=== PATIENT | female | born 1995 | race Caucasian/White ===

== ENCOUNTER 2017-11-11 21:53 | Emergency (ER) | payer BC ==
[2017-11-11] MEDS ORDERED: NS 0.9% 1000 ML* 1,000 ML IV ONE (22:52)
[2017-11-11] MEDS ORDERED: Ketorolac INJ* 30 MG/ML 1 ML VIAL IV PUSH ONE (22:52)
[2017-11-11] MEDS ORDERED: Metoclopramide IV* 5 MG/ML 2 ML VIAL IV ONE (22:52)
[2017-11-11] MEDS ORDERED: methylPREDNISolone 125 MG* 2 ML VIAL IV ONE (22:52)
[2017-11-12 00:32] VITALS: BP 119/75
--- NOTE | 2017-11-28 11:22 | ED ---
Duane Blancas Gabriel, scribed for Ketan Spencer MD on 11/11/17 at 2251 . Headache - HPI Summary HPI Summary: This patient is a 22 year old F presenting to [facility] accompanied by her mother with a chief complaint of migraine that began at 2100 tonight while sitting in her chair. The patient rates the pain 8/10 in severity. Symptoms aggravated by light. Patient reports nausea. She states it is located in the occipital area and radiates down into her neck which is typical for her usual migraines. She has been having bad cyclic migraines for the past few weeks. She has Tylenol w/ codeine that she takes PRN at home but has hit her maximum dose for the week and would like different medication. - History Of Current Complaint Chief Complaint: EDHeadache Stated Complaint: HEADACHE Time Seen by Provider: 11/11/17 22:46 Hx Obtained From: Patient Hx Last Menstrual Period: 1 WEEK AGO Onset/Duration: Started hours ago, Still Present Initially Headache Was: Initial Pain Scale(0-10)= - 6 Currently Pain Is: Current Pain Scale(0-10)= - 6 Timing: Constant Location of Headache: Occipital Aggravating Factor: Bright Lights Associated Signs And Symptoms: Nausea - Allergies/Home Medications Allergies/Adverse Reactions: Allergies Allergy/AdvReac Type Severity Reaction Status Date / Time amoxicillin Allergy Rash Verified 11/11/17 22:16 Home Medications: Home Medications Cholecalciferol (Vitamin D3) [Vitamin D3] 4,000 unit PO DAILY 11/11/17 [History Confirmed 11/11/17] Desogestrel-Ethinyl Estradiol [Juleber 0.15-30 mg-Mcg] 1 tab PO DAILY 11/11/17 [ History Confirmed 11/11/17] Minocycline HCl [Solodyn] 80 mg PO DAILY 11/11/17 [History Confirmed 11/11/17] Zonisamide [Zonisamide] 25 mg PO BEDTIME 11/11/17 [History Confirmed 11/11/17] raNITIdine HCl [Ranitidine HCl] 150 mg PO BID 11/11/17 [History Confirmed ] PMH/Surg Hx/FS Hx/Imm Hx Cardiovascular History: Denies: Hx Syncope Respiratory History: Reports: Hx Asthma Neurological History: Reports: Hx Headaches, Hx Migraine - Surgical History Surgery Procedure, Year, and Place: ORAL SURGERY Infectious Disease History: No Infectious Disease History: Denies: Traveled Outside the [place] in Last 30 Days - Family History Known Family History: Negative: Diabetes, Blood Disorder - Social History Alcohol Use: None Substance Use Type: Reports: None Smoking Status (MU): Never Smoked Tobacco Review of Systems Positive: Photophobia Positive: Nausea Positive: Headache All Other Systems Reviewed And Are Negative: Yes Physical Exam - Summary Physical Exam Summary: Appearance: Well-appearing, no distress, Well-nourished Skin: Warm, color reflects adequate perfusion Head: Normal Head/Face inspection Eyes: Conjunctiva clear ENT: Normal inspection Neck: Supple, no nodes, no JVD. Respiratory: Lungs clear, Normal breath sounds, no respiratory distress Cardio: RRR, No murmur, pulses normal, brisk capillary refill Abdomen: soft, nontender, no guarding, no rebound Bowel sounds: present Musculoskeletal: Strength Intact/ ROM intact. No calf tenderness. No edema. Neuro: Alert, muscle tone normal, facial symmetry, speech normal, sensory/motor intact Psychological: Normal Triage Information Reviewed: Yes Vital Signs On Initial Exam: Initial Vitals Temp Pulse Resp BP Pulse Ox 97.9 F 100 16 141/104 98 11/11/17 22:09 11/11/17 22:09 11/11/17 22:09 11/11/17 22:09 11/11/17 22:09 Vital Signs Reviewed: Yes Diagnostics - Vital Signs Vital Signs Temp Pulse Resp BP Pulse Ox 11/11/17 22:09 97.9 F 100 16 141/104 98 - Laboratory Lab Statement: Any lab studies that have been ordered have been reviewed, and results considered in the medical decision making process. Re-Evaluation - Re-Evaluation First Eval Re-Evaluation Time: 00:16 Change: Improved Comment: Pt's headache improved with IV analgesia and IVF; pt pain level now 0/ 10; pt repeat CN exam intact II-XII. Headache Course/Dx - Diagnoses Differential Diagnosis/HQI/PQRI: CVA, TIA, Migraine, Sinus Headache, Temporal Arteritis, Tension Headache Provider Diagnoses: Migraine headache Discharge - Sign-Out/Discharge Documenting (check all that apply): Discharge/Admit/Transfer - Discharge Plan Condition: Improved Disposition: HOME Patient Education Materials: Migraine Headache (ED) Referrals: Kathleen Chavez MD [Primary Care Provider] - - Billing Disposition and Condition Condition: IMPROVED Disposition: Home The documentation as recorded by the Duane thomas Gabriel accurately reflects the service I personally performed and the decisions made by me, Ketan Spencer MD.
== END 2017-11-12 00:36 | disposition home or self-care (01) ==
LOC: ED 21:53
DX: G43.909 Migraine, unspecified, not intractable, without status migrainosus (principal); H53.149 Visual discomfort, unspecified; R11.0 Nausea
CPT/HCPCS: 96374; 96375; 99283; J1885; J2765; J2930

== ENCOUNTER 2017-12-22 20:20 | Emergency (ER) | payer BC ==
--- OUTSIDE RECORDS SUMMARY | 2017-12-22 20:25 | XMS REPORT ---
:1995 External Reference #:[id number] Author Organization [employer] Address [address] [place] [address] [place] [address] Phone [phone] Care Team Providers Name Role Phone Kathleen Chavez MD Primary Care Physician Unavailable Payers Type Date Identification Numbers Payment Provider Subscriber Commercial Effective: Policy Number: [employer] Tita Narayanan 2011 [id number] PayID: [id number] [address] [place] [id number] Problems Date Description Provider Status Onset: 12/21/2017 Refractory migraine with aura Gary Feldman M.D. Active Social History Type Date Description Comments Cigarette Use Never Smoked Cigarettes ETOH Use Occasionally consumes alcohol Smoking Patient has never smoked Allergies, Adverse Reactions, Alerts Date Description Reaction Status Severity Comments 12/21/2017 Amoxicillin active Rash 12/21/2017 Vitamin B Complex active Rash Medications Medication Date Status Form Strength Qnty SIG Indications Ordering Provider Topiramate 12/21/ Active Tablets 25mg 60tabs 1 by G43.119 Gary Feldman M.D. twice a day Ranitidine / Active Capsules 150mg take one Unknown HCL 0000 capsule by mouth twice a day Solodyn / Active Tablets ER 80mg 1 tab Unknown 0000 24HR everyday Cetirizine / Active Tablets 10mg 1 by Unknown HCL 0000 mouth every day Juleber / Active Tablets 0.15-30mg- by mouth Unknown 0000 mcg everyday Lexapro / Active Tablets 20mg 1 by Unknown 0000 mouth every day Rizatriptan / Active Tablets 5mg 1 by Unknown Benzoate 0000 mouth at onset of migraine, may repeat after 2 hours max 2/day max 2 days/week Vitamin D-3 00/00/ Active Tablets 2000Unit take 2 Unknown 0000 tab by mouth daily Ambien CR 00/00/ Active Tablets ER 6.25mg one tab Unknown 0000 by mouth every night at bedtime Vital Signs Date Vital Result Comment 12/21/2017 Height 65.5 inches 5'5.50" Weight 210.00 lb Heart Rate 70 /min BP Systolic 130 mmHg BP Diastolic 84 mmHg BMI (Body Mass Index) 34.4 kg/m2 Results Description No Information Procedures Description No Information Encounters Type Date Location Provider CPT E/M Dx Office Visit 12/21/2017 [facility] Gary Feldman, [address] G43.119 8:30a [facility] Office Visit 03/02/2012 [facility] Morena Galvan, [address] 339.20 4:00p [facility] 310.2 Plan of Care Future Appointment(s):02/23/2018 2:45 pm - Gary Feldman M.D. at [facility]12/21/2017 - Gary Feldman M.D.G43.119 Migraine with aura, intractable, without status migrainosusNew Medication:Topiramate 25 mgFollow up:Follow up in 8 weeksRecommendations:1. Keep a headache calendar 2. Will retry Topamax: start 25mg at night for 2 weeks and then add am dose. 3. Call me with any issues. 4. The studies show that low dose low-dose (ie, less than or equal to 30 mcg ethinyl estradiol) with no other stroke risk factors are generally thought to be safe in patients with migraine with aura. I do think it is ok to use low dose OCPs as these help her headaches.
[2017-12-22 20:41] VITALS: BP 122/88
[2017-12-22] MEDS ORDERED: NS 0.9% 500 ML* 500 ML IV ONE (21:46)
[2017-12-22] MEDS ORDERED: Ondansetron INJ* 2 MG/ML VIAL IV ONE (21:48)
[2017-12-22] MEDS ORDERED: Ketorolac INJ* 30 MG/ML 1 ML VIAL IV PUSH ONE (21:48)
--- NOTE | 2017-12-22 22:02 | UC ---
Headache HPI - HPI Summary HPI Summary: 22 yo female c/o migraine h/a since yesterday am. Reports that the migraine started when the she had a neurologic evaluation, and the doctor shined a light in her eye. Migraine is typical migraine, but pain this time lasts longer than usual. Most recent migrain this bad was earlier this week. No fever / chills. Pain is R forehead and R post head. No recent illness. Took migraine medication yesterday, started topamax yesterday. Took ibuprofen and exedrin without relief + nausea no vomit. . No p/d/w. No new visual issues other than usual migraine sx. Reports hyperacoustic, which also is normal for her during migraine. Is being seen by neurologist, Dr. Feldman, they will call her next week. Hx migrain h/a x several years, still in process of w/u. 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 Hx Last Menstrual Period: December 10, 2017 Pain Intensity: 8 - Allergies/Home Medications Allergies/Adverse Reactions: Allergies Allergy/AdvReac Type Severity Reaction Status Date / Time amoxicillin Allergy Rash Verified 12/22/17 20:42 PMH/Surg Hx/FS Hx/Imm Hx Previously Healthy: Yes - see pi re migraine - Surgical History Surgical History: None Surgery Procedure, Year, and Place: ORAL SURGERY - Family History Known Family History: Negative: Diabetes, Blood Disorder - Social History Alcohol Use: None Substance Use Type: Prescribed Smoking Status (MU): Never Smoked Tobacco Review of Systems Constitutional: Negative Skin: Negative Eyes: Photophobia ENT: Negative Respiratory: Negative Cardiovascular: Negative Gastrointestinal: Nausea Genitourinary: Negative Motor: Negative Neurovascular: Negative Musculoskeletal: Negative Neurological: Headache Psychological: Negative Is Patient Immunocompromised?: No All Other Systems Reviewed And Are Negative: Yes Physical Exam Triage Information Reviewed: Yes Appearance: Well-Nourished - sitting up, dark sunglasses on, Other: - uncomfortable with light exam Vital Signs: Initial Vital Signs Temp 97.0 F 12/22/17 20:38 Pulse 84 12/22/17 20:38 Resp 12 12/22/17 20:38 BP 122/88 12/22/17 20:38 Pulse Ox 100 12/22/17 20:38 Eye Exam: Normal - perrla eomi. fundoscopic limited d/t photophobia ENT Exam: Normal Neck exam: Normal Neck: Positive: Supple, Nontender Cardiovascular Exam: Normal Cardiovascular: Positive: RRR, No Murmur, Pulses Normal, Brisk Capillary Refill Abdominal Exam: Normal Abdomen Description: Positive: Nontender Musculoskeletal Exam: Normal Neurological Exam: Normal - cn's 1-12 grossly intact. Moves x 4 ext's H/a describes as R forehead extending to post head Psychological Exam: Normal Skin Exam: Normal Headache Course/Dx - Course Course Of Treatment: Received 500ccNS, IV toradol 30mg IV, Zofran 4mg iv. Pain not completely gone much decreased. Advised not to take nsaid's until tomorrow. Departed with mother. Aware of the need for f/u pcp, and will call neurologist (will call on Monday). - Differential Dx/Diagnosis Provider Diagnoses: Migraine h/a Discharge - Sign-Out/Discharge Documenting (check all that apply): Patient Departure - Discharge Plan Condition: Stable Disposition: HOME Patient Education Materials: Migraine Headache (ED) Referrals: Kathleen Chavez MD [Primary Care Provider] - Additional Instructions: Follow up with your primary care provider, per routine. Follow up with your neurologist, call on Monday to review your condition, and set up a follow up appointment, for next available. Please seek medical attention for worse or new problems in the meantime. - Billing Disposition and Condition Condition: STABLE Disposition: Home
== END 2017-12-22 22:37 | disposition home or self-care (01) ==
LOC: UCEAST 20:20
DX: G43.909 Migraine, unspecified, not intractable, without status migrainosus (principal)
CPT/HCPCS: 96374; 96375; 99211; G0463; J1885; J2405

== ENCOUNTER 2018-04-15 21:55 | Emergency (ER) | payer BC ==
[2018-04-15] MEDS ORDERED: Metoclopramide IV* 5 MG/ML 2 ML VIAL IV SLOW PU ONE (22:43)
[2018-04-15] MEDS ORDERED: Ketorolac INJ* 30 MG/ML 1 ML VIAL IV PUSH ONE (22:43)
[2018-04-15] MEDS ORDERED: NS 0.9% 1000 ML* 1,000 ML IV ONE (22:44)
[2018-04-15] MEDS ORDERED: diPHENhydraMINE PO* 25 MG PO ONE (22:44)
[2018-04-15] MEDS ORDERED: Magnesium Sulfate 2 GM IV* 2 GM/50 ML BAG IVPB ONE (22:44)
--- NOTE | 2018-04-15 23:50 | ED ---
Headache - HPI Summary HPI Summary: Patient is a 22 y/o F w/ c/o headache. She states that DURON onset when she awoke this morning. Patient took excedrin and reglan at 0900 with no relief in Sx. She states she did so again at 1300/1400. At dinner today, mother reports that patient grabbed her head in pain. Mother states that patient was saying "this is a dream" over and over. Patient later elaborated that she said this as the pain was so intense. Vomiting and fever is denied, some nausea reported. Patient notes photophobia. She also claims that present DURON pain is worse than her typical migraine. She states she has tried many migraine medications with no relief in Sx. Patient went to see an customer specialist as mother and patient "did not know what else to do". Hx of endocrine problems is denied. 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 Eaton stated he believes lupus is "attacking her brain". Patient has stopped taking minocycline as a result, is still taking omeprazole and zyrtec. She takes control pills for ovarian cysts. 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 On triage , pain is rated 10/10, light is noted to aggravate Sx, nothing is reported to alleviate Sx. Home medications and allergies are reviewed. - History Of Current Complaint Chief Complaint: EDHeadache Stated Complaint: HEADACHE Time Seen by Provider: 04/15/18 22:26 Hx Obtained From: Patient Hx Last Menstrual Period: December 10, 2017 Onset/Duration: Sudden Onset, Started hours ago - this morning, Still Present, Worse Since - dinnertime Initially Headache Was: Moderate Currently Pain Is: Severe - 10/10 Timing: Constant, Hours - this morning Character: Migraine Aggravating Factor: Bright Lights Allevating Factors: Nothing Associated Signs And Symptoms: Nausea, Other (Noted In Comments) - photophobia endorsed, no vomiting - Allergies/Home Medications Allergies/Adverse Reactions: Allergies Allergy/AdvReac Type Severity Reaction Status Date / Time amoxicillin Allergy Rash Verified 04/15/18 22:11 minocycline Allergy See Comment Verified 04/15/18 22:11 PMH/Surg Hx/FS Hx/Imm Hx Endocrine/Hematology History: 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 Negative: Vomiting Positive: Headache All Other Systems Reviewed And Are Negative: Yes Physical Exam - Summary Physical Exam Summary: VITAL SIGNS: Reviewed. GENERAL: Patient is a well-developed and nourished female who is lying comfortable in the stretcher. Patient is not in any acute respiratory distress. HEAD AND FACE: No signs of trauma. No ecchymosis, hematomas or skull depressions. No sinus tenderness. EYES: PERRLA, EOMI x 2, No injected conjunctiva, no nystagmus. EARS: Hearing grossly intact. Ear canals and tympanic membranes are within normal limits. MOUTH: Oropharynx within normal limits. NECK: Supple, trachea is midline, no adenopathy, no JVD, no carotid bruit, no c- spine tenderness, neck with full ROM. CHEST: Symmetric, no tenderness at palpation LUNGS: Clear to auscultation bilaterally. No wheezing or crackles. CVS: Regular rate and rhythm, S1 and S2 present, no murmurs or gallops appreciated. ABDOMEN: Soft, non-tender. No signs of distention. No rebound no guarding, and no masses palpated. Bowel sounds are normal. EXTREMITIES: FROM in all major joints, no edema, no cyanosis or clubbing. NEURO: Alert and oriented x 3. No acute neurological deficits. Speech is normal and follows commands. SKIN: Dry and warm Triage Information Reviewed: Yes Vital Signs On Initial Exam: Initial Vitals Temp Pulse Resp BP Pulse Ox 100.6 F 92 16 141/88 97 04/15/18 22:04 04/15/18 22:04 04/15/18 22:04 04/15/18 22:04 04/15/18 22:04 Vital Signs Reviewed: Yes Diagnostics - Vital Signs Vital Signs Temp Pulse Resp BP Pulse Ox 04/15/18 22:04 100.6 F 92 16 141/88 97 - Laboratory Lab Statement: Any lab studies that have been ordered have been reviewed, and results considered in the medical decision making process. Re-Evaluation - Re-Evaluation First Eval Re-Evaluation Time: 23:45 Change: Improved Comment: Patient reports relief in Sx, patient will be discharged to home and follow up with PCP. She is agreeable with this plan. Headache Course/Dx - Course Course Of Treatment: Patient is a 22 y/o F w/ c/o headache. She states that DURON onset when she awoke this morning. Patient took excedrin and reglan at 0900 with no relief in Sx. She states she did so again at 1300/1400. At dinner today , mother reports that patient grabbed her head in pain. Mother states that patient was saying "this is a dream" over and over. Patient later elaborated that she said this as the pain was so intense. Vomiting and fever is denied, some nausea reported. Patient notes photophobia. She states she has tried many migraine medications with no relief in Sx. Patient went to see an customer specialist as mother and patient "did not know what else to do". Hx of endocrine problems is denied. 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 Eaton stated he believes lupus is "attacking her brain ". Patient has stopped taking minocycline as a result, is still taking omeprazole and zyrtec. She takes control pills for ovarian cysts. 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 Physical exam was unremarkable. During ED course, patient was given fluids, Reglan 10 mg IV SLOW PU, magnesium sulfate, toradol 30 mg IV PUSH ED ONCE ONE, and Benadryl 50 mg PO ED ONCE ONE. Afterwards, Patient reports relief in Sx, patient will be discharged to home and follow up with PCP. She is agreeable with this plan. - Diagnoses Provider Diagnoses: Headache Discharge - Sign-Out/Discharge Documenting (check all that apply): Patient Departure - discharge - Discharge Plan Condition: Stable Disposition: HOME Patient Education Materials: Acute Headache (ED) Referrals: Kathleen Chavez MD [Primary Care Provider] - 2 Days Additional Instructions: RETURN TO THE EMERGENCY DEPARTMENT FOR CHANGING OR WORSENING SYMPTOMS. FOLLOW UP WITH PRIMARY CARE PHYSICIAN IN 1-2 DAYS. - Attestation Statements Document Initiated by Scribe: Yes Documenting Scribe: KIA CHOW Provider For Whom Scribe is Documenting (Include Credential): CLAUDY ROACH MD Scribe Attestation: IKIA, scribed for CLAUDY ROACH MD on 04/16/18 at 0009.
[2018-04-16 00:54] VITALS: BP 144/96
== END 2018-04-16 00:55 | disposition home or self-care (01) ==
LOC: ED 21:55
DX: R51 Headache (principal); Z88.0 Allergy status to penicillin
CPT/HCPCS: 96361; 96374; 96375; 99283; A9270-GY; J1885; J2765; J3475

== ENCOUNTER 2018-08-17 16:30 | Emergency (ER) | payer BC ==
--- OUTSIDE RECORDS SUMMARY | 2018-08-17 16:36 | XMS REPORT | Continuity of Care Document ---
:1995 External Reference #:[id number] Author Name Kathlene Chavez M.D. Address [address] [place] [address] Care Team Providers Name Role Phone Kathleen Chavez M.D. 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 Group Name: BC/BS of [place] [address] PayID: [id number] Effective: 2009 Policy Number: [id number] Sara Stack Expires: 2011 Group Name: BC/BS chris MILLER [address] [address] PayID: [id number] P[place] [address] Effective: 2011 Policy Number: [id number] Sara Stack Group Name: [facility] [address] [address] PayID: [id number] P[place]MINI [place] [address] Advance Directives Description No Information Available Problems Date Description Provider Status Onset: 11/16/2010 Refractory migraine Erika Spencer NP Active Onset: 11/16/2010 Asthma without status asthmaticus Kathleen Chavez M.D. Active Family History Date Family Member(s) Observation Comments Mother Cancer, Breast in her 40's Mother Thyroid Disease multinodular goiter, biopsy of dominant nodule benign biopsy Maternal Grandfather Diabetes Social History Type Date Description Comments Sex Unknown Lives With Mother Lives With Father Lives With Sibling - Older Brother Lives With Sibling - Older Sister Smoke-Free Home is smoke-free Pets 1 cat Pets 1 dog Tobacco Use Start: Unknown Never Smoked Cigarettes Tobacco Use Start: Unknown Patient has never smoked Allergies, Adverse Reactions, Alerts Date Description Reaction Status Severity Comments 10/31/2001 Amoxicillin Active Rash AT End Of One Week Rx 06/01/2016 vit Active Moderate rash with vitamin B complex, fine with Vitamin B12 sublingua 03/01/2018 Topamax Active Severe Dissociative symptoms/ mental status changes 05/09/2018 Minocycline Active Severe drug-induced lupus Medications Medication Date Status Form Strength Qnty SIG Indications Ordering Provider Acetaminophen-Co 07/03 Active Tablets 300-30mg 7tabs take one G43.009 Kathleen basilio # tablet by Nilesh Chavez mouth every day as needed for persisten t migraine maximum daily dose=1 Cyanocobalamin 01/03 Active Solution 1000mcg/M 3unit inject Kathleen P. L s 1ml once Nilesh Chavez monthly as directed for vitamin b12 deficienc y Emoquette 01/03 Active Tablets 0.15-3mg- 84tab take 1 Kathleen P. mcg s tablet by Nilesh Chavez mouth once daily as directed Massage Therapy 09/05 Active evaluate Kathleen PNeha and treat Nilesh Chavez for neck pain/ migraines for up to once per week Xopenex HFA 06/02 Active Aerosol 45mcg/Act 15gm 2 puffs Kathleen Ochoa every 4 Nilesh Chavez hours as needed for shortness of breath/ wheezing Fluticasone 05/12 Active Suspension 50mcg/Act 1mont 2 sprays J06.9 Shawnti R. Propionate h each nare Dariel, DISPATCH OFFICER-C daily for rhinitis Vitamin D-3 03/19 Active Tablets 2000Unit 1 po qd Kathleen P. Nilesh Chavez Escitalopram Active Tablets 10mg 1.5 tabs Anitain-Horleopoldo Oxalate /0000 per day- Nadia ghosh-Claudette henley NP Tretinoin Active Cream 0.025% apply to Unknown / face once per day as directed Zolpidem Active Tablets 10mg 7tabs take one Kathleen PNeha Tartrate / tablet by Nilesh Chavez mouth every day at bedtime as needed for sleep Lorazepam Active Tablets 0.5mg Take 1 2 Unknown To 1 Tablet By Mouth Up To Two Times A Day as Needed Maximum Omeprazole Active Capsules 10mg 30cap 1 by Kathleen Ochoa /0000 DR rusty Chavez M.D. every day for heartburn / acid reflux, on empty stomach Zyrtec Allergy Active Tablets 10mg 1 by Unknown mouth every day Metoclopramide Active Tablets 5mg prn Gaston, HCL Migraine Christopher Stacey Allergy 02/20 Hx Tablets 180mg 30tab one by J30.9 Dayna Amezquita s mouth MONTSE Vieira - daily 06/12 Permethrin 02/20 Hx Cream 5% 60gm apply to B86 Dayna Neha body from M[place]SE [place] - the neck 06/12 down leave on for 8 hours then rinse off, may repeat in one week Zonisamide 11/08 Hx Capsules 25mg 30cap 1 po qhs Kathleen Ochoa s for Nilesh Chavez - migraine 01/02 preventio n Norethindrone 07/17 Hx Tablets 0.35mg 28tab Take 1 Kathleen Ochoa s Tablet By Nilesh Chavez - Mouth 01/03 Daily Directed AT The Same Time Every Day For Menses Regulatio n Replace s Radha Tylenol With 06/22 Hx Tablets 300-30mg 7tabs take one G43.Owen Ochoa Codeine #3 tablet by Nilesh Chavez - mouth 07/03 every day as needed for persisten t migraine maximum daily dose=1 Rizatriptan 06/22 Hx Tablets 5mg 14tab Take 1 G43.009 Kathleen Ochoa Benzoate s Tablet By Nilesh Chavez - Mouth AT 02/28 Onset Of Migraine And May Repeat In 2 Hours as Directed Ranitidine HCL 12/06 Hx Tablets 150mg 180ta take one bs tablet by Cade - RYAN broussard III-C 05/09 twice a day for heartburn Wear Sneakers 11/28 Hx must be M72.2 Kjwnti R. able to Storm, DISPATCH OFFICER-C - wear 11/29 sneakers supportiv e shoes at work due to orthopedi c foot problem Omeprazole 10/28 Hx Capsules 40mg 30cap [address] rusty Corbin, - every day [employer]PATCH OFFICER-C 06/22 in the evening Metrogel-Vaginal 04/05 Hx Gel 0.75% 70gm insert N76.0 wnti R. one Dariel, DISPATCH OFFICER-C - applicato 04/15 r full into vagina before bed for one week. Emoquette 03/16 Hx Tablets 0.15-30mg 84tab take 1 Kathleen Ochoa -mcg s tablet by Nilesh Chavez - mouth 07/17 once daily; skip placebo pills Prednisone 03/15 Hx Tablets 20mg 10tab 2 tablets L30.9 Scott s by mouth Cade - daily for III, DISPATCH OFFICER-C 04/18 five days Minocycline HCL 02/12 Hx Capsules 50mg 60cap take one L70.8 s capsule Shaquille, - by mouth [employer]PATCH OFFICER-C 04/18 twice a day for 2 to 3 months Betamethasone 02/12 Hx Lotion 0.05% 60uni apply to L21.8 Suzanne Dipropionate ts scalp Shaquille, - twice [employer]PATCH OFFICER-C 03/03 daily needed Clobetasol 01/26 Hx Foam 0.05% 100gm apply to L30.9 [place] Propionate affected [place], Emulsion - area 03/03 sparingly daily Vitamin B-12 05/19 Hx Tablets 1000mcg 1 Kathleen Ochoa /2014 Sub sublingua Nilesh Chavez - l every Prednisone 11/19 Hx Tablets 20mg 10QS 2 by 708.9 Kathleen Ochoa /2014 mouth Nilesh Chavez - every day 05/19 with food /2014 for 5 days Cetirizine HCL 10/22 Hx Tablets 10mg one by Kathleen Ochoa /2014 mouth Nilesh Chavez - every day 02/28 allergies Gabapentin 07/02 Hx Capsules 100mg 90cap Take 2 To Kathleen P. /2014 s 3 Nilesh Chavez - Capsules 05/19 By Mouth AT Bedtime as Needed For Headaches / Sleep Ambien 06/17 Hx Tablets 5mg 5tabs 1/2-1 po 780.52 Kathleen P. /2014 qhs prn Nilesh Chavez - insomnia 10/22 Bupropion HCL XL 06/21 Hx Tablets ER 150mg 30tab 1 po qam 296.31 Shawnti R. /2013 24HR s for DarielOLIVIAP-C - depressio 06/21 n Citalopram 06/21 Hx Tablets 10mg 30tab 1 po 296.31 Shawnti R. Hydrobromide /2013 s daily for DarielRYAN-C - anxiety 07/20 and depressio n Sertraline HCL 06/11 Hx Tablets 25mg 15tab / po 296.31 Kathleen P. /2013 s qhs as Nilesh Chavez - directed 06/21 x 1 week then can increase to 1 po qd if tolerated Fluoxetine HCL 06/07 Hx Capsules 10mg 30cap 1 po qam 296.31 Shawnti R. /2013 s for DarielRYAN-C - depressio 06/11 Emoquette 05/20 Hx Tablets 0.15-30mg 112ta Take 1 784.0 Kathleen Steel2012 -mcg bs Tablet By Nilesh Chavez - Mouth 03/03 Once Daily; Skip Placebo Pills [place] 3 03/19 Hx Capsules 1000mg Kathleen Ochoa /Aneta Chavez M.D. - 06/12 Lecithin 03/19 Hx Granules Kathleen Ochoa /Aneta Chavez M.D. - 02/05 Vitamin B 03/19 Hx Tablets qd Kathleen Cm Nilesh Chavez - 02/05 Azithromycin 02/19 Hx Tablets 250mg 6tabs take 2 461.9 tablets Shaquille, - today [employer]PATCH OFFICER-C 03/19 then tablet daily for the next 4 days Guaifenesin/Code 02/19 Hx Syrup 100-10mg/ 240ml 1 - 2 461.9 Suzanne 5ML teaspoon Shaquille, - po q 4 DISPATCH OFFICER-C 03/19 hours prn cough, causes drowsines s Azithromycin 08/15 Hx Tablets 250mg 6tabs take 2 382.9 Suzanne tablets Shaquille, - today [employer]PATCH OFFICER-C 03/19 then tablet daily for the next 4 days Clindamycin 03/16 Hx Solution 1% 60ml apply qhs Kathleen Ochoa Phosphate /2011 and up to Nilesh Chavez - bid as 04/16 directed for acne Amitriptyline 03/30 Hx Tablets 10mg 30tab take one Kathleen PNeha HCL /2010 s PO qhs Nilesh Chavez - for 03/13 migraine preventio n/ insomnia Hydrocodone/Acet 08/05 Hx Tablets 2.5-500mg 20tab 05/30-1 po Kathleen Ochoa aminophen /2010 s q 6hours Nilesh Chavez - prn 03/06 migraine Promethazine HCL 08/05 Hx Tablets 12.5mg 10tab one-half Kathleen P. s to one po Nilesh Chavez - q12 hours 03/06 prn migraine/ nausea No School Today 06/02 Hx 346.80 MIKO Spencer - 03/06 Amoxicillin 05/11 Hx Tablets 500mg MIKO Spencer - 05/11 Cefdinir 05/11 Hx Capsules 300mg 14cap 1 tab po s bid x 7 MIKO Spencer - days 03/06 Azithromycin 05/05 Hx Tablets 250mg 6tabs take 2 381.01 Kathleen PNeha tabs day Nilesh Chavez - 1, take 1 03/06 day 2- Azithromycin 04/06 Hx Tablets 250mg 6tabs 2 po 461.9 Shawnti RNeha /2008 today MONTSE Vieira - then 1 po 02/16 daily for 4 days Zyrtec 04/06 Hx Tablets 10mg 30tab one tab 461.9 Erika s by mouth MIKO Spencer - daily for 03/07 seaonal allergies Selenium Sulfide 10/27 Hx Lotion 2.5% 118ml apply to Kathleen P. trunk Nilesh Chavez - once per 02/16 week - leave on x 10 minutes then wash off x 4 weeks Curtis-Tab 09/[address] 333mg 30tab 1 po tid 462 Stacy A. /2008 s for 10 Fazal, - days F.N.P.C. 02/16 Xopenex HFA 12/26 Hx Aerosol 45mcg/Act 1unit 2 puffs q Kathleen P. /2007 s 4 hours Nilesh Chavez - prn 03/03 wheezing can use 2 puffs 30 minutes prior to exercise prn Zithromax 10/19 Hx Suspension 200mg/5cc QS 1 and 1 Shawnti R. /2006 teaspoon Storm, DISPATCH OFFICER-C - po qd 02/06 first day then 07/30 teaspoon qd x 4 days Zithromax 06/09 Hx Suspensi 200mg/TSP QS one and 034.0 Stacy A. /2005 05/ tsp Fazal, - day one, F.N.P.C. 01/16 3/ tsp /2005 days 2-5 Fluoride 04/28 Hx Chewtabs 1mg 30uni one po qd Kathleen P. ts Nilesh Chavez - 02/16 Nhcf-FQ-Flwk 01/19 Hx Chewtabs 1mg 30uni 1 po qd Kathleen P. /2004 benny Chavez M.D. - 04/28 Singulair 09/23 Hx Chewtabs 5mg 7sg 1 po qd 995.3 Nichole Grimes /2003 Yong Haas M.D. 01/13 Stacey 09/23 Hx Tablets 60mg 12sg / po 995.3 Nichole Grimes /2003 bid prn Yong Haas M.D. 01/15 Vermox 09/21 Hx Chewtabs 100mg 2unit one qd x1 Kathleen Ochoa s for Nilesh Chavez - pinworm, 01/15 repeat after 7 days Zithromax 06/02 Hx Suspension 200mg/TSP 15ml one tsp 381.4 Nichole MarinW. /2003 po on day Waldo, - one, then M.D. 09/23 1/ /2003 po qd x4 days Keflex 05/28 Hx Suspension 250mg/TSP 100ml one tsp 381.4 Nichole K.W. /2002 qid or 2 Waldo, - tsp po M.D. 06/02 bid x days Fluoride 01/13 Hx 1mg 30uni one po qd Kathleen P. Chewtabs /2002 ts Nilesh Chavez - 01/19 Ceftin 11/18 Hx Suspensi 250mg/TSP 100ml 1 tsp po Nichole K.W. /2002 bid X10 Waldo, - Days M.D. 01/04 Zithromax 08/12 Hx Suspensi 200mg/TSP QS One TSP Kathleen P. PO qd Nilesh Chavez - First Day 01/04 One-Half TSP PO qd For Four Days Vermox 06/15 Hx Chewtabs 100mg 2unit One qd X1 Adilene s For MIKO Gamez - Pinworm, 08/12 Repeat X1 After 7 Days Amoxil 05/17 Hx Suspensi 400mg/5ML qs 1 tsp bid Adilene X10 Days MIKO Gamez - 08/12 Amoxicillin 10/23 Hx Chewtabs 250mg 30uni Chew And Nichole K.W. /2001 ts Swallow Waldo, - One M.D. 08/12 Tablet Three Times Per Day Until Prescript ion Is Finished Zyrtec Hx Liquid 5mg/TSP Amarilys, /0000 MD Marie - 02/16 Nasonex Nasal Hx 1 spray 381.01 Shawnti R. [place] /0000 each Storm, DISPATCH OFFICER-C - nostril 02/16 daily rhinitis Entex Hx Capsules Amarilys, /0000 MD Marie - 02/16 Advair Diskus Hx Inhaler 100mcg;50 Amarilys, /0000 mcg MD Marie - 02/16 Albuterol Hx Aerosol 90mcg/Dos 1unit 2 Puffs Q Kathleen P. / e s 4 Hours Finn Chavez. - prn 02/16 Wheezing Cough Amoxicillin Hx Tablets 500mg 20tab 1 po bid Unknown /0000 s x 10 days - 08/25 Methylphenidate Hx Tablets ER 36mg One PO Unknown HCL ER /0000 qam prn - Attention 03/19 ( /2012 Member) Zolpidem Hx Tablets 10mg 1/2-1 Unknown Tartrate pill po - qhs prn 03/19 insomnia Zonisamide Hx Capsules 50mg 1 PO qd Stackman, for MD Morena - migraine/ 03/19 headache preventio n - pt not taking regularly Tretinoin Hx Cream 0.025% Unknown - 06/17 Solodyn Hx Tablets ER 65mg 1 PO qd Yadira, 24HR Franny - 03/03 Clindamycin Hx Lotion 1% Unknown Phosphate - 09/27 Modafinil Hx Tablets 100mg Take One Unknown Tablet By - Mouth 09/27 Every Day /2016 Solodyn Hx Tablets ER 55mg One By Unknown 24HR Mouth - Daily 05/09 Aczone Hx Gel 5% Apply To Unknown Face - Daily 06/22 Sumatriptan Hx Tablets 50mg Gaston, Succinate Christopher - 06/12 Medications Administered in Office Medication Date Status Form Strength Qnty SIG Indications Ordering Provider Vitamin B-12 Administered Injection Kathleen P. Injection-To 019 Blegen, 1000mcg M.D. Vitamin B-12 Administered Injection Kathleen P. Injection-To 019 Blegen, 1000mcg M.D. Vitamin B-12 Administered Injection Kathleen P. Injection-To 018 Blegen, 1000mcg M.D. Vitamin B-12 Administered Injection Lab and Injection-To 018 Office 1000mcg Services Vitamin B-12 Administered Injection Kathleen P. Injection-To 018 Blegen, 1000mcg M.D. Vitamin B-12 Administered Injection Kathleen P. Injection-To 018 Blegen, 1000mcg M.D. Vitamin B-12 Administered Injection Lab and Injection-To 015 Office 1000mcg Services Vitamin B-12 Administered Injection Lab and Injection-To 015 Office 1000mcg Services Vitamin B-12 Administered Injection Lab and Injection-To 015 Office 1000mcg Services Immunizations CPT Code Status Date Vaccine Lot # [id number] Given 06/22/2017 Tdap (Adacel) [id number] 63668 Given 09/27/2016 HPV Vaccine 9 (Gardasil 9), 3 Dose [id number] 09169 Given 06/02/2016 Influenza Virus Vaccine, Quadrivalent, 3 Yr > [id number] Quad, Preserv Free 76029 Given 06/02/2016 HPV Vaccine 9 (Gardasil 9), 3 Dose [id number] 21210 Given 03/03/2016 HPV Vaccine, Gardasil [id number] 11172 Given 02/07/2008 Menactra (meningococcal conjugate vaccine) [id number] 24288 Given 12/27/2007 Varicella (Chicken Pox) Vaccine [id number] 32096 Given 12/27/2007 Tdap (Adacel) [id number] 88395 Given 12/25/2001 Inactivated Polio Vaccine, Injectable (Ipol) 14953 Given 12/25/2001 MMR (Measles,Mumps,Rubella) 16154 Given 12/25/2001 DTaP (Daptacel) 21997 Given 10/12/1999 Varicella (Chicken Pox) Vaccine 90228 Given 01/01/1998 Comvax - Hep B Pediatric/Hib 96053 Given 01/01/1998 MMR (Measles,Mumps,Rubella) 44778 Given 01/01/1998 DTaP (Daptacel) 19536 Given 03/20/1997 Opv (Poliovirus,Oral) 07798 Given 03/20/1997 DTaP (Daptacel) 73780 Given 01/16/1997 Comvax - Hep B Pediatric/Hib 19626 Given 01/16/1997 Inactivated Polio Vaccine, Injectable (Ipol) 32666 Given 01/16/1997 DTaP (Daptacel) 07698 Given 1996 Comvax - Hep B Pediatric/Hib 29990 Given 1996 Inactivated Polio Vaccine, Injectable (Ipol) 63383 Given 1996 DTaP (Daptacel) 01861 Refused 01/27/2016 Influenza Virus Vaccine, Quadrivalent, 3 Yr > Quad , Preserv Free Vital Signs Date Vital Result Comment 07/24/2018 1:42pm Weight 215.00 lb Weight 97.524 kg BP Systolic 100 mmHg BP Diastolic 64 mmHg Heart Rate 64 /min Body Temperature 98.5 F Respiratory Rate 16 /min Height 65 inches 5'5" BMI (Body Mass Index) 35.8 kg/m2 Last Menstrual Period [id number] 06/12/2018 4:53pm Weight 212.00 lb Weight 96.163 kg BP Systolic 118 mmHg BP Diastolic 86 mmHg Heart Rate 84 /min Body Temperature 98.5 F O2 % BldC Oximetry 98 % 03/01/2018 12:42pm Weight 213.00 lb Weight 96.617 kg BP Systolic 120 mmHg BP Diastolic 84 mmHg Heart Rate 92 /min Body Temperature 98.8 F Respiratory Rate 16 /min 02/20/2018 4:49pm Weight 215.00 lb Weight 97.524 kg BP Systolic 110 mmHg BP Diastolic 72 mmHg Heart Rate 74 /min Body Temperature 98.6 F Respiratory Rate 16 /min O2 % BldC Oximetry 98 % 01/03/2018 10:46am Weight 213.00 lb Weight 96.617 kg BP Systolic 110 mmHg BP Diastolic 80 mmHg Heart Rate 82 /min Body Temperature 98.5 F Respiratory Rate 16 /min O2 % BldC Oximetry 98 % 06/22/2017 10:32am Weight 210.00 lb Weight 95.256 kg BP Systolic 110 mmHg BP Diastolic 76 mmHg Heart Rate 100 /min Body Temperature 97.4 F Respiratory Rate 18 /min Height 65 inches 5'5" BMI (Body Mass Index) 34.9 kg/m2 O2 % BldC Oximetry 98 % 12/06/2016 1:45pm Weight 200.00 lb Weight 90.720 kg BP Systolic 110 mmHg BP Diastolic 74 mmHg Heart Rate 72 /min Body Temperature 97.6 F Respiratory Rate 14 /min 11/28/2016 3:34pm Weight 202.00 lb Weight 91.627 kg BP Systolic 122 mmHg BP Diastolic 86 mmHg Heart Rate 74 /min Body Temperature 98.5 F Respiratory Rate 18 /min O2 % BldC Oximetry 99 % 10/28/2016 1:49pm Weight 203.00 lb Weight 92.081 kg BP Systolic 120 mmHg BP Diastolic 80 mmHg Heart Rate 84 /min Body Temperature 97.9 F Respiratory Rate 16 /min 09/27/2016 2:45pm Weight 200.00 lb Weight 90.720 kg BP Systolic 128 mmHg (took sudafed last pm) BP Diastolic 98 mmHg (took sudafed last pm) Heart Rate 94 /min Body Temperature 97.8 F Respiratory Rate 16 /min O2 % BldC Oximetry 98 % 06/02/2016 9:45am Weight 197.00 lb Weight 89.359 kg BP Systolic 98 mmHg BP Diastolic 64 mmHg Heart Rate 103 /min Body Temperature 96.4 F Respiratory Rate 16 /min Height 65 inches 5'5" BMI (Body Mass Index) 32.8 kg/m2 Body Mass Index Percentile 3 % Last Menstrual Period 5958632 O2 % BldC Oximetry 98 % 04/18/2016 10:13am Weight 200.00 lb Weight 90.720 kg BP Systolic 116 mmHg BP Diastolic 78 mmHg Heart Rate 82 /min Body Temperature 98.5 F Respiratory Rate 17 /min O2 % BldC Oximetry 99 % 04/05/2016 11:51am BP Systolic 112 mmHg BP Diastolic 70 mmHg Heart Rate 80 /min Body Temperature 99.5 F 03/15/2016 3:07pm Weight 196.00 lb Weight 88.906 kg BP Systolic 120 mmHg BP Diastolic 90 mmHg Heart Rate 88 /min Body Temperature 97.6 F Respiratory Rate 12 /min 03/03/2016 11:30am Weight 194.00 lb Weight 87.998 kg BP Systolic 100 mmHg BP Diastolic 70 mmHg Heart Rate 76 /min Body Temperature 97.9 F Respiratory Rate 16 /min O2 % BldC Oximetry 97 % 01/27/2016 4:50pm Weight 190.00 lb Weight 86.184 kg BP Systolic 100 mmHg BP Diastolic 70 mmHg Heart Rate 72 /min Body Temperature 99.5 F Respiratory Rate 16 /min 05/19/2015 4:36pm Weight 175.00 lb Weight 79.380 kg BP Systolic 100 mmHg BP Diastolic 60 mmHg Heart Rate 72 /min Weight Percentile 94th Right Visual Acuity Distance 20/25 Corrected Left Visual Acuity Distance 20/25 Both Visual Acuity Distance 20/25 11/19/2014 2:30pm Weight 162.00 lb Weight 73.483 kg BP Systolic 120 mmHg BP Diastolic 84 mmHg Heart Rate 84 /min Body Temperature 98.9 F took benadryl Weight Percentile 90th 10/22/2014 2:26pm Weight 158.00 lb Weight 71.669 kg BP Systolic 122 mmHg BP Diastolic 64 mmHg Heart Rate 68 /min Weight Percentile 89th 06/17/2014 4:56pm Weight 156.00 lb Weight 70.762 kg BP Systolic 114 mmHg BP Diastolic 74 mmHg Heart Rate 84 /min Height 65 inches 5'5" Height Percentile 62 % Weight Percentile 88th BMI (Body Mass Index) 26.0 kg/m2 Body Mass Index Percentile 87 % 05/17/2014 9:51am Weight 155.00 lb Weight 70.308 kg Body Temperature 98.6 F Weight Percentile 88th 05/12/2014 4:03pm Weight 154.00 lb Weight 69.854 kg BP Systolic 112 mmHg BP Diastolic 68 mmHg Heart Rate 88 /min Body Temperature 99.2 F Weight Percentile 87th O2 % BldC Oximetry 98 % 02/05/2014 3:18pm Weight 152.00 lb Weight 68.947 kg BP Systolic 105 mmHg BP Diastolic 75 mmHg Heart Rate 89 /min Weight Percentile 87th 07/05/2013 4:25pm Weight 134.00 lb Weight 60.782 kg BP Systolic 100 mmHg BP Diastolic 70 mmHg Heart Rate 72 /min Weight Percentile 7106/21/2013 4:44pm Weight 136.00 lb Weight 61.690 kg BP Systolic 130 mmHg BP Diastolic 68 mmHg Heart Rate 72 /min Weight Percentile 74th 06/07/2013 1:55pm Weight 136.00 lb Weight 61.690 kg BP Systolic 110 mmHg BP Diastolic 74 mmHg Heart Rate 80 /min Body Temperature 98.4 F Weight Percentile 74th 05/20/2013 11:04am Weight 134.00 lb Weight 60.782 kg BP Systolic 100 mmHg BP Diastolic 60 mmHg Heart Rate 76 /min Weight Percentile 7104/16/2013 2:32pm Weight 138.00 lb Weight 62.597 kg BP Systolic 110 mmHg BP Diastolic 58 mmHg Heart Rate 84 /min Body Temperature 96.9 F Height 64.25 inches 5'4.25" Height Percentile 52 % Weight Percentile 76th BMI (Body Mass Index) 23.5 kg/m2 Body Mass Index Percentile 77 % Right Visual Acuity Distance 20/25 with contact lens both eyes Left Visual Acuity Distance 20/25 Both Visual Acuity Distance 20/15 Last Menstrual Period [id number] 03/19/2013 4:41pm Weight 137.00 lb Weight 62.143 kg BP Systolic 102 mmHg BP Diastolic 68 mmHg Heart Rate 72 /min Body Temperature 98.1 F Height 64.5 inches 5'4.50" Height Percentile 56 % Weight Percentile 76th BMI (Body Mass Index) 23.2 kg/m2 Body Mass Index Percentile 75 % 02/19/2013 4:59pm Weight 134.00 lb Weight 60.782 kg BP Systolic 112 mmHg BP Diastolic 70 mmHg Heart Rate 80 /min Body Temperature 98.1 F Weight Percentile 72nd O2 % BldC Oximetry 98 % 12/19/2012 8:56am Weight 132.00 lb Weight 59.875 kg BP Systolic 94 mmHg BP Diastolic 70 mmHg Heart Rate 66 /min Body Temperature 97.4 F Weight Percentile 70th 08/15/2012 4:49pm Weight 138.00 lb Weight 62.597 kg BP Systolic 98 mmHg BP Diastolic 64 mmHg Heart Rate 66 /min Body Temperature 98.0 F Weight Percentile 78th 03/16/2012 3:52pm Weight 144.00 lb Weight 65.318 kg BP Systolic 110 mmHg BP Diastolic 70 mmHg Heart Rate 69 /min Body Temperature 99.4 F Weight Percentile 84th O2 % BldC Oximetry 98 % 03/13/2012 3:26pm Weight 145.00 lb Weight 65.772 kg BP Systolic 100 mmHg BP Diastolic 60 mmHg Heart Rate 76 /min Height 64.50 inches 5'4.50" Height Percentile 59 % Weight Percentile 85th BMI (Body Mass Index) 24.5 kg/m2 Body Mass Index Percentile 85 % Right Visual Acuity Distance 20/25 Left Visual Acuity Distance 20/25 Both Visual Acuity Distance 20/20 Last Menstrual Period 0 03/07/2011 12:16pm Weight 132.00 lb Weight 59.875 kg BP Systolic 110 mmHg BP Diastolic 80 mmHg Heart Rate 84 /min Height 64.5 inches 5'4.50" Height Percentile 65 % Weight Percentile 79th BMI (Body Mass Index) 22.3 kg/m2 Body Mass Index Percentile 77 % Right Visual Acuity Distance 20/20 Left Visual Acuity Distance 20/25 Both Visual Acuity Distance 20/20 Last Menstrual Period 0 03/01/2011 4:35pm Weight 132.00 lb Weight 59.875 kg BP Systolic 104 mmHg BP Diastolic 60 mmHg Heart Rate 88 /min Body Temperature 98.9 F Weight Percentile 79th 08/25/2010 4:06pm Weight 114.00 lb Weight 51.710 kg BP Systolic 100 mmHg BP Diastolic 70 mmHg Heart Rate 84 /min Body Temperature 99.2 F Weight Percentile 60th 08/11/2010 12:29pm Weight 112.00 lb Weight 50.803 kg BP Systolic 100 mmHg BP Diastolic 62 mmHg Heart Rate 77 /min Body Temperature 99.0 F Weight Percentile 57th O2 % BldC Oximetry 99 % 08/05/2010 11:06am Weight 110.00 lb Weight 49.896 kg BP Systolic 90 mmHg BP Diastolic 62 mmHg Heart Rate 72 /min Body Temperature 98.5 F Weight Percentile 54th 06/02/2010 10:50am Weight 110.00 lb Weight 49.896 kg BP Systolic 104 mmHg BP Diastolic 70 mmHg Heart Rate 88 /min Body Temperature 98.5 F Weight Percentile 56th 05/24/2010 1:51pm Weight 109.00 lb Weight 49.442 kg BP Systolic 92 mmHg BP Diastolic 56 mmHg Heart Rate 64 /min Body Temperature 98.9 F Weight Percentile 54th 05/05/2010 4:04pm Weight 111.00 lb Weight 50.350 kg BP Systolic 100 mmHg BP Diastolic 80 mmHg Heart Rate 90 /min Body Temperature 98.9 F Weight Percentile 59th O2 % BldC Oximetry 98 % 02/24/2010 2:52pm Weight 112.00 lb Weight 50.803 kg BP Systolic 102 mmHg BP Diastolic 70 mmHg Heart Rate 88 /min Height 63 inches 5'3" Height Percentile 57 % Weight Percentile 63rd BMI (Body Mass Index) 19.8 kg/m2 Body Mass Index Percentile 61 % Right Visual Acuity Distance 20/20 With Corrections Left Visual Acuity Distance 20/20 With Corrections Both Visual Acuity Distance 20/20 With Corrections Last Menstrual Period 0 04/06/2009 1:40pm Weight 109.00 lb Weight 49.442 kg BP Systolic 110 mmHg BP Diastolic 64 mmHg Heart Rate 88 /min Body Temperature 98.9 F Weight Percentile 72nd 03/24/2009 4:55pm Weight 109.00 lb Weight 49.442 kg BP Systolic 116 mmHg BP Diastolic 76 mmHg Heart Rate 72 /min Height 62 inches 5'2" Height Percentile 65 % Weight Percentile 72nd BMI (Body Mass Index) 19.9 kg/m2 Body Mass Index Percentile 70 % Right Visual Acuity Distance 20/20 Left Visual Acuity Distance 20/20 Both Visual Acuity Distance 20/20 Last Menstrual Period 0 09/03/2008 3:35pm Weight 96.00 lb Weight 43.546 kg Body Temperature 99.3 F Weight Percentile 59th 12/27/2007 12:17pm Weight 88.00 lb Weight 39.917 kg BP Systolic 86 mmHg BP Diastolic 64 mmHg Heart Rate 68 /min Height 58.5 inches 4'10.50" Height Percentile 64 % Weight Percentile 57th BMI (Body Mass Index) 18.1 kg/m2 Body Mass Index Percentile 57 % 05/25/2007 2:24pm Weight 80.00 lb Weight 36.288 kg Body Temperature 97.6 F Weight Percentile 53rd 01/22/2007 12:53pm Weight 75.00 lb Weight 34.020 kg BP Systolic 100 mmHg BP Diastolic 60 mmHg Heart Rate 76 /min Height 56.25 inches 4'8.25" Height Percentile 66 % Weight Percentile 48th BMI (Body Mass Index) 16.7 kg/m2 Body Mass Index Percentile 43 % Right Visual Acuity Distance 20/25 Left Visual Acuity Distance 20/30 10/19/2006 12:01pm Weight 71.50 lb Weight 32.432 kg Body Temperature 97.5 F oral Weight Percentile 45th 01/16/2006 11:36am Weight 67.00 lb Weight 30.391 kg BP Systolic 90 mmHg BP Diastolic 60 mmHg Heart Rate 82 /min Respiratory Rate 18 /min Height 54 inches 4'6" Height Percentile 65 % Weight Percentile 51st BMI (Body Mass Index) 16.2 kg/m2 Body Mass Index Percentile 44 % Right Visual Acuity Distance 20/20 Left Visual Acuity Distance 20/25 09/01/2005 4:31pm Weight 65.00 lb Weight 29.484 kg Body Temperature 98.5 F Weight Percentile 55th 06/09/2005 10:58am Weight 64.00 lb Weight 29.030 kg Body Temperature 100.1 F Weight Percentile 58th 03/21/2005 5:07pm Weight 64.00 lb Weight 29.030 kg Body Temperature 97.4 F Weight Percentile 64th 01/19/2005 12:06pm Weight 62.00 lb Weight 28.123 kg BP Systolic 84 mmHg BP Diastolic 56 mmHg Height 52 inches 4'4" Height Percentile 67 % Weight Percentile 61st BMI (Body Mass Index) 16.1 kg/m2 Body Mass Index Percentile 53 % Both Visual Acuity Distance 20/20 Last Menstrual Period 0 04/28/2004 2:14pm Weight 56.00 lb Weight 25.402 kg Weight Percentile 59th 01/14/2004 11:19am Weight 53.00 lb Weight 24.041 kg BP Systolic 100 mmHg BP Diastolic 60 mmHg Heart Rate 84 /min Height 50.25 inches 4'2.25" Height Percentile 76 % Weight Percentile 54th BMI (Body Mass Index) 14.8 kg/m2 Body Mass Index Percentile 31 % Right Visual Acuity Distance 20/20 Left Visual Acuity Distance 20/20 09/24/2003 4:02pm Weight 44.00 lb Weight 19.958 kg Body Temperature 99.5 F Weight Percentile 20th 06/16/2003 2:22pm Weight 46.00 lb Weight 20.866 kg Body Temperature 99.6 F Weight Percentile 36th 05/28/2003 4:12pm Weight 47.00 lb Weight 21.319 kg Body Temperature 96.9 F Weight Percentile 43rd 01/13/2003 10:58am Weight 45.00 lb Weight 20.412 kg BP Systolic 80 mmHg BP Diastolic 52 mmHg Heart Rate 80 /min Respiratory Rate 20 /min Height 46.50 inches Height Percentile 59 % Weight Percentile 43rd BMI (Body Mass Index) 14.6 kg/m2 01/04/2003 11:13am Weight 46.00 lb Weight 20.866 kg Weight Percentile 49th 11/18/2002 1:31pm Weight 44.00 lb Weight 19.958 kg Body Temperature 99.0 F Weight Percentile 41st 08/12/2002 10:53am Weight 44.00 lb Weight 19.958 kg Body Temperature 98.1 F Weight Percentile 50th 05/17/2002 2:08pm Weight 41.00 lb Weight 18.600 kg Body Temperature 98.8 F Weight Percentile 39th 12/25/2001 10:57am Weight 39.00 lb BP Systolic 90 mmHg BP Diastolic 50 mmHg Heart Rate 88 /min Respiratory Rate 20 /min Height 42.75 inches Height Percentile 59 % Weight Percentile 45th BMI (Body Mass Index) 15.5 kg/m2 Right Visual Acuity Distance 20/20 Left Visual Acuity Distance 20/20 10/23/2001 3:54pm Weight 38.50 lb BP Systolic 80 mmHg BP Diastolic 52 mmHg Body Temperature 99.0 F Weight Percentile 42nd Results Test Date Facility Test Result H/L Range Note Celiac Hla 05/18/2018 [facility] [id number] SEE BELOW 5 [phone] [id number] SEE BELOW 2 Celiac Gene Pairs Present? No Celiac Gene Interpretation See Comment 3 Nuclear AB 05/18/2018 [facility] Nuclear Ab Positive 1:320 Abnormal 4 ([place]) By Ifa [phone] ([place]) by Ifa, Igg IgG Capri Titer: 1:320 [place] Pattern: Homogeneous 5 Hla B27 05/18/2018 [facility] Hla B27 Negative 6 [phone] Hla B27 Interp See Comment 7 Laboratory test 05/18/2018 [facility] Cyclic Citrullinated <15.6 U 8 finding [phone] Pep Igg Celiac Panel 05/18/2018 [facility] Tissue <1.2 U/mL 9 [phone] Transglutaminase IgA Ab Immunoglobulin A 170 mg/dL 61 - 356 Celiac Interpretation See Comment 10 Laboratory test 05/18/2018 [facility] Anti Double < 12.3 IU/mL 11 finding [phone] Stranded Dna AB Cardiolipin 05/18/2018 [facility] Phospholipid Ab < 9.4 MPL 12 Igg/Igm [phone] IgM, S Phospholipid Ab IgG < 9.4 GPL 13 Laboratory test 05/18/2018 [facility] Ribosome P < 0.2 U 14 finding [phone] Antibodies, Igg Abril Igg AB Reflex 05/18/2018 [facility] SS-A/Ro Antibody <0.2 U 15 [phone] SS-B/La Antibody <0.2 U 16 Sm (Palumbo) IgG Antibody <0.2 U 17 SPLICER APPRENTICE Antibody, IgG <0.2 U 18 Scl-70 (Scleroderma) Antibody <0.2 U 19 Shelli-1 Antibody <0.2 U 20 Laboratory test 05/18/2018 [facility] Creatine 58 U/ L N 10-223 finding [phone] Kinase(CK) Rheumatoid Factor < 10 IU/mL N <15 C Reactive Protein 18.88 mg/L High <8.01 Thyroperoxidase AB 0.44 IU/mL N <9 Erythrocyte Sed Rate 21 mm/Hr High 0-14 Aso (Antistreptolysin O) Titer Negative IU/mL <200 Iu/mL 21 Complement C3 192 mg/dL Abnormal 75 - 175 22 Complement C4 41 mg/dL Abnormal 14 - 40 23 Aldolase 6.9 U/L <7.7 24 Laboratory test 03/14/2018 [facility] Vitamin D 49.0 ng/mL N 20-50 finding [phone] Total 25(Oh) Vitamin B12 478 pg/mL N 180-914 25 Prolactin 14.0 ng/mL N 1.0-25.0 Laboratory test 01/04/2018 [facility] Hemoglobin A1c <pending> finding [phone] (Glyco HGB) CBC Auto Diff 01/03/2018 [facility] White Blood 10.0 10^3/uL N 3.5-1 [phone] Count 0.8 Red Blood Count 4.82 10^6/uL N 4.00-5.40 Hemoglobin 13.5 g/dL N 12.0-16.0 Hematocrit 40 % N 35-47 Mean Corpuscular Volume 83 fL N 80-97 Mean Corpuscular Hemoglobin 28 pg N 27-31 Mean Corpuscular HGB Conc 34 g/dL N 31-36 Red Cell Distribution Width 14 % N 10.5-15 Platelet Count 372 10^3/uL N 150-450 Mean Platelet Volume 7.0 um3 Low 7.4-10.4 Abs Neutrophils 4.5 10^3/uL N 1.5-7.7 Abs Lymphocytes 3.2 10^3/uL N 1.0-4.8 Abs Monocytes 0.6 10^3/uL N 0-0.8 Abs Eosinophils 1.7 10^3/uL High 0-0.6 Abs Basophils 0.1 10^3/uL N 0-0.2 Abs Nucleated RBC 0 10^3/uL Granulocyte % 44.6 % N 38-83 Lymphocyte % 32.2 % N 25-47 Monocyte % 5.7 % N 0-7 Eosinophil % 16.9 % High 0-6 Basophil % 0.6 % N 0-2 Nucleated Red Blood Cells % 0.2 Laboratory test 01/03/2018 [facility] Vitamin B12 290 pg/mL N 180-914 26 finding [phone] Comp Metabolic 01/03/2018 [facility] Sodium 139 mmol/ L N 135-145 Panel [phone] Potassium 3.7 mmol/L N 3.5-5.0 Chloride 109 mmol/L N 101-111 Glucose 97 mg/dL N 70-100 Blood Urea Nitrogen 10 mg/dL N 6-24 Calcium 9.4 mg/dL N 8.6-10.3 Total Protein 6.4 g/dL N 6.4-8.9 Albumin 3.8 g/dL N 3.2-5.2 Globulin 2.6 g/dL N 2-4 Albumin/Globulin Ratio 1.5 N 1-3 Total Bilirubin 0.30 mg/dL N 0.2-1.0 Alkaline Phosphatase 91 U/L N 34-104 Alt 12 U/L N 7-52 Ast 12 U/L Low 13-39 Co2 Carbon Dioxide 20 mmol/L Low 22-32 Anion Gap 10 mmol/L N 2-11 Creatinine 0.71 mg/dL N 0.51-0.95 BUN/Creatinine Ratio 14.1 N 8-20 Egfr Non- 103.9 >60 Egfr 125.7 >60 27 Laboratory test 01/03/2018 [facility] TSH (Thyroid 3.86 mcIU/mL N 0.34-5.60 28 finding [phone] Stim Horm) Free T4 (Free Thyroxine) 0.79 ng/dL N 0.61-1.12 29 T3 Free 4.60 pg/mL High 2.5-3.9 30 Hemoglobin A1c 5.3 % N 4.0-5.6 31 Laboratory test 06/22/2017 [facility] TSH (Thyroid 2.44 mcIU/mL N 0.34-5.60 32 finding [phone] Stim Horm) Free T4 (Free Thyroxine) 0.71 ng/dL N 0.61-1.12 33 Comp Metabolic Panel 06/22/2017 [facility] Sodium 136 mmol/L N 133-145 [phone] Potassium 4.2 mmol/L N 3.5-5.0 Chloride 104 mmol/L N 101-111 Co2 Carbon Dioxide 22 mmol/L N 22-32 Anion Gap 10 mmol/L N 2-11 Glucose 107 mg/dL High 70-100 Blood Urea Nitrogen 9 mg/dL N 6-24 Creatinine 0.71 mg/dL N 0.51-0.95 BUN/Creatinine Ratio 12.7 N 8-20 Calcium 9.6 mg/dL N 8.6-10.3 Total Protein 6.7 g/dL N 6.4-8.9 Albumin 3.8 g/dL N 3.2-5.2 Globulin 2.9 g/dL N 2-4 Albumin/Globulin Ratio 1.3 N 1-3 Total Bilirubin 0.20 mg/dL N 0.2-1.0 Alkaline Phosphatase 83 U/L N 34-104 Alt 11 U/L N 7-52 Ast 12 U/L Low 13-39 Egfr Non- 105.0 >60 Egfr 135.0 >60 34 Laboratory test 06/22/2017 [facility] Vitamin D 26.7 ng/mL N 20-50 35 finding [phone] Total 25(Oh) CBC Auto Diff 06/22/2017 [facility] White Blood 8.2 10^3/uL N 3.5-10.8 [phone] Count Red Blood Count 4.96 10^6/uL N 4.0-5.4 Hemoglobin 13.8 g/dL N 12.0-16.0 Hematocrit 41 % N 35-47 Mean Corpuscular Volume 82 fL N 80-97 Mean Corpuscular Hemoglobin 28 pg N 27-31 Mean Corpuscular HGB Conc 34 g/dL N 31-36 Red Cell Distribution Width 13 % N 10.5-15 Platelet Count 381 10^3/uL N 150-450 Mean Platelet Volume 7 um3 Low 7.4-10.4 Abs Neutrophils 4.5 10^3/uL N 1.5-7.7 Abs Lymphocytes 2.3 10^3/uL N 1.0-4.8 Abs Monocytes 0.5 10^3/uL N 0-0.8 Abs Eosinophils 0.8 10^3/uL High 0-0.6 Abs Basophils 0 10^3/uL N 0-0.2 Abs Nucleated RBC 0 10^3/uL Granulocyte % 55.2 % N 38-83 Lymphocyte % 28.2 % N 25-47 Monocyte % 5.8 % N 1-9 Eosinophil % 10.4 % High 0-6 Basophil % 0.4 % N 0-2 Nucleated Red Blood Cells % 0 Laboratory test 06/22/2017 [facility] Vitamin B12 396 pg/mL N 180-914 36 finding [phone] Laboratory test 10/28/2016 [facility] Amylase 67 U/L N 29-103 37 finding [phone] CBC Auto Diff 10/28/2016 [facility] White Blood 10.1 N 3.5-10.8 [phone] Count 10^3/uL Red Blood Count 4.87 10^6/uL N 4.0-5.4 Hemoglobin 13.5 g/dL N 12.0-16.0 Hematocrit 41 % N 35-47 Mean Corpuscular Volume 83 fL N 80-97 Mean Corpuscular Hemoglobin 28 pg N 27-31 Mean Corpuscular HGB Conc 33 g/dL N 31-36 Red Cell Distribution Width 13 % N 10.5-15 Platelet Count 338 10^3/uL N 150-450 Mean Platelet Volume 8 um3 N 7.4-10.4 Abs Neutrophils 5.3 10^3/uL N 1.5-7.7 Abs Lymphocytes 3.0 10^3/uL N 1.0-4.8 Abs Monocytes 0.5 10^3/uL N 0-0.8 Abs Eosinophils 1.3 10^3/uL High 0-0.6 Abs Basophils 0 10^3/uL N 0-0.2 Abs Nucleated RBC 0.01 10^3/uL N Granulocyte % 52.6 % N 38-83 Lymphocyte % 29.5 % N 25-47 Monocyte % 5.1 % N 1-9 Eosinophil % 12.4 % High 0-6 Basophil % 0.4 % N 0-2 Nucleated Red Blood Cells % 0.1 N Comp Metabolic Panel 10/28/2016 [facility] Sodium 136 mmol/L N 133-145 [phone] Potassium 4.1 mmol/L N 3.5-5.0 Chloride 103 mmol/L N 101-111 Co2 Carbon Dioxide 25 mmol/L N 22-32 Anion Gap 8 mmol/L N 2-11 Glucose 93 mg/dL N 70-100 Blood Urea Nitrogen 9 mg/dL N 6-24 Creatinine 0.74 mg/dL N 0.51-0.95 BUN/Creatinine Ratio 12.2 N 8-20 Calcium 9.5 mg/dL N 8.6-10.3 Total Protein 6.7 g/dL N 6.4-8.9 Albumin 3.9 g/dL N 3.2-5.2 Globulin 2.8 g/dL N 2-4 Albumin/Globulin Ratio 1.4 N 1-3 Total Bilirubin 0.30 mg/dL N 0.2-1.0 Alkaline Phosphatase 86 U/L N 34-104 Alt 16 U/L N 7-52 Ast 19 U/L N 13-39 Egfr Non- 100.1 N >60 Egfr 128.7 N >60 38 Laboratory test 10/28/2016 [facility] Lipase 35 U/L N 11.0-82.0 39 finding [phone] Laboratory test 04/18/2016 [facility] Dhea 2.0 ng/mL N <13 40 finding [phone] Androstenedione Level 87 ng/dL N 30-200 41 TSH (Thyroid Stim Horm) 3.28 mcIU/mL N 0.34-5.60 42 Free T4 (Free Thyroxine) 0.77 ng/dL N 0.61-1.12 43 Vitamin B12 400 pg/mL N 180-914 44 Vitamin D Total 25(Oh) 41.4 ng/mL N 30-50 45 Comp Metabolic Panel 04/18/2016 [facility] Sodium 135 mmol/L N 133-145 [phone] Potassium 4.2 mmol/L N 3.5-5.0 Chloride 103 mmol/L N 101-111 Co2 Carbon Dioxide 23 mmol/L N 22-32 Anion Gap 9 mmol/L N 2-11 Glucose 79 mg/dL N 70-100 Blood Urea Nitrogen 9 mg/dL N 6-24 Creatinine 0.68 mg/dL N 0.51-0.95 BUN/Creatinine Ratio 13.2 N 8-20 Calcium 9.4 mg/dL N 8.6-10.3 Total Protein 7.0 g/dL N 6.4-8.9 Albumin 3.9 g/dL N 3.2-5.2 Globulin 3.1 g/dL N 2-4 Albumin/Globulin Ratio 1.3 N 1-3 Total Bilirubin 0.30 mg/dL N 0.2-1.0 Alkaline Phosphatase 73 U/L N 34-104 Alt 15 U/L N 7-52 Ast 14 U/L N 13-39 Egfr Non- 111.5 N >60 Egfr 143.4 N >60 46 Laboratory test 04/18/2016 [facility] Progesterone < 40 ng/dL N 47 finding [phone] 17Hydroxy Testosterone Free 04/18/2016 [facility] Free Testosterone <0.04 N 0.06- 48 & Total [phone] ng/dl ng/dL 1.08 Testosterone 26 ng/dL N 8-60 49 Laboratory test 04/18/2016 [facility] FSH (Follicle 1.1 mIU/mL N 50 finding [phone] Stim Hormone) LH (Lutenizing Hormone) 1.0 ?IU/mL N 51 Insulin Level 37.4 mcIU/mL Abnormal 2.6 - 24.9 52 Laboratory test 04/05/2016 [facility] Culture Genital & SEE RESULT 53 finding [phone] Sensitivity BELOW Laboratory test 04/05/2016 [facility] HCG DIP Test neg Neg finding (607)- - Urine DIP 04/05/2016 [facility] Leukocytes nge Neg (607)- - Urine Nitrites neg Neg Urobilinogen norm Norm Total Protein, Urine neg Neg Urine pH 5 5-6 Urine Blood neg Neg Specific [place] 1.020 1.01-1.02 Urine Ketones neg Neg Urine Bilirubin neg Neg Urine Glucose norm Norm Comp Metabolic Panel 05/19/2015 [facility] Sodium 136 mmol/L N 133-145 [phone] Potassium 4.4 mmol/L N 3.5-5.0 Chloride 104 mmol/L N 101-111 Co2 Carbon Dioxide 24 mmol/L N 22-32 Anion Gap 8 mmol/L N 2-11 Glucose 97 mg/dL N 70-100 Blood Urea Nitrogen 8 mg/dL N 6-24 Creatinine 0.63 mg/dL N 0.51-0.95 BUN/Creatinine Ratio 12.7 N 8-20 Calcium 9.6 mg/dL N 8.6-10.3 Total Protein 7.0 g/dL N 6.4-8.9 Albumin 4.0 g/dL N 3.2-5.2 Globulin 3.0 g/dL N 2-4 Albumin/Globulin Ratio 1.3 N 1-3 Total Bilirubin 0.20 mg/dL N 0.2-1.0 Alkaline Phosphatase 67 U/L N 34-104 Alt 10 U/L N 7-52 Ast 14 U/L N 13-39 Egfr Non- 123.1 N >60 Egfr 158.3 N >60 54 CBC Auto Diff 05/19/2015 [facility] White Blood 9.0 10^3/uL N 3.5-10.8 [phone] Count Red Blood Count 4.77 10^6/uL N 4.0-5.4 Hemoglobin 13.5 g/dL N 12.0-16.0 Hematocrit 41 % N 35-47 Mean Corpuscular Volume 85 fL N 80-97 Mean Corpuscular Hemoglobin 28 pg N 27-31 Mean Corpuscular HGB Conc 33 g/dL N 31-36 Red Cell Distribution Width 13 % N 10.5-15 Platelet Count 350 10^3/uL N 150-450 Mean Platelet Volume 7 um3 Low 7.4-10.4 Abs Neutrophils 5.1 10^3/uL N 1.5-7.7 Abs Lymphocytes 2.4 10^3/uL N 1.0-4.8 Abs Monocytes 0.4 10^3/uL N 0-0.8 Abs Eosinophils 1.1 10^3/uL High 0-0.6 Abs Basophils 0 10^3/uL N 0-0.2 Abs Nucleated RBC 0.01 10^3/uL N Granulocyte % 56.3 % N 38-83 Lymphocyte % 26.6 % N 25-47 Monocyte % 5.0 % N 1-9 Eosinophil % 11.7 % High 0-6 Basophil % 0.4 % N 0-2 Nucleated Red Blood Cells % 0.1 N Laboratory test 05/19/2015 [facility] Vitamin B12 633 pg/mL N 180-914 55 finding [phone] Comp Metabolic 10/22/2014 [facility] Sodium 135 mmol/ L N 133-145 Panel [phone] Potassium 3.8 mmol/L N 3.5-5.0 Chloride 104 mmol/L N 101-111 Co2 Carbon Dioxide 23 mmol/L N 22-32 Anion Gap 8 mmol/L N 2-11 Glucose 120 mg/dL High 70-100 Blood Urea Nitrogen 10 mg/dL N 6-24 Creatinine 0.69 mg/dL N 0.51-0.95 BUN/Creatinine Ratio 14.5 N 8-20 Calcium 9.6 mg/dL N 8.6-10.3 Total Protein 6.8 g/dL N 6.4-8.9 Albumin 4.0 g/dL N 3.2-5.2 Globulin 2.8 g/dL N 2-4 Albumin/Globulin Ratio 1.4 N 1-3 Total Bilirubin 0.30 mg/dL N 0.2-1.0 Alkaline Phosphatase 62 U/L N 34-104 Alt 9 U/L N 7-52 Ast 13 U/L N 13-39 Egfr Non- 110.8 N >60 Egfr 142.5 N >60 56 CBC Auto Diff 10/22/2014 [facility] White Blood 7.7 10^3/uL N 4.8-10.8 [phone] Count Red Blood Count 4.63 10^6/uL N 4.0-5.4 Hemoglobin 13.5 g/dL N 12.0-16.0 Hematocrit 40 % N 35-47 Mean Corpuscular Volume 86 fL N 80-97 Mean Corpuscular Hemoglobin 29 pg N 27-31 Mean Corpuscular HGB Conc 34 g/dL N 31-36 Red Cell Distribution Width 12 % N 10.5-15 Platelet Count 318 10^3/uL N 150-450 Mean Platelet Volume 8 um3 N 7.4-10.4 Abs Neutrophils 4.0 10^3/uL N 1.5-7.7 Abs Lymphocytes 2.4 10^3/uL N 1.0-4.8 Abs Monocytes 0.4 10^3/uL N 0-0.8 Abs Eosinophils 0.9 10^3/uL High 0-0.6 Abs Basophils 0 10^3/uL N 0-0.2 Abs Nucleated RBC 0 10^3/uL N Granulocyte % 52.4 % N 38-83 Lymphocyte % 31.1 % N 25-47 Monocyte % 4.9 % N 1-9 Eosinophil % 11.2 % High 0-6 Basophil % 0.4 % N 0-2 Nucleated Red Blood Cells % 0 N Iron & Iron Binding 10/22/2014 [facility] Iron 103 g/dL N 50-212 Capacity [phone] Unsaturated Iron Binding 359 g/dL N Total Iron Binding Capacity 462 g/dL High 250-450 % Iron Saturation 22 % N 15-55 Laboratory test 10/22/2014 [facility] TSH (Thyroid 2.44 ?IU/mL N 0.34-5.60 finding [phone] Stim Horm) Free T4 (Free Thyroxine) 0.72 ng/mL N 0.61-1.12 Vitamin B12 265 pg/mL N 180-914 57 Vitamin D Total 25(Oh) 34.1 ng/mL N 30-50 Laboratory test 04/16/2013 [facility] Thyroid 0.4 IU/ mL Less Than finding [phone] Peroxidase 9.0 Antibodies Vitamin D, 25 04/16/2013 [facility] 25-Hydroxy <4.0 ng/mL Hydroxy [phone] Vitamin D2 25-Hydroxy Vitamin D3 29 ng/mL 25-Hydroxy Vitamin D Total 29 ng/mL 58 Laboratory test 04/16/2013 [facility] TSH (Thyroid 1.04 0.34-5.60 finding [phone] Stimulating miu/mL Horm) Free T4 0.90 ng/mL 0.61-1.24 Free T3 3.62 pg/mL 2.39-6.79 Vitamin B12 411 pg/mL 180-914 Comp Metabolic Panel 04/16/2013 [facility] Sodium 138 mmol/L 133-145 [phone] Potassium 3.7 mmol/L 3.5-5.0 Chloride 103 mmol/L 101-111 Co2 Carbon Dioxide 26.0 mmol/L 22-32 Anion Gap 9.0 mmol/L 2-11 Glucose 85 mg/dL 70-100 Blood Urea Nitrogen 11 mg/dL 6-24 Creatinine 0.60 mg/dL 0.50-1.40 BUN/Creatinine Ratio 18.3 8-20 Calcium 9.7 mg/dL 8.1-9.9 Total Protein 7.6 g/dL 6.2-8.1 Albumin 4.5 g/dL 3.6-5.4 Globulin 3.1 g/dL 2-4 Albumin/Globulin Ratio 1.5 1-3 Total Bilirubin 0.6 mg/dL 0.4-1.5 Alkaline Phosphatase 99 U/L 50-176 Alt 17 U/L 14-54 Ast 26 U/L 12-42 [place] 04/16/2013 [facility] Lyme Disease Negative Negative Blot [phone] IgG Ab WB Lyme Disease IgG Bands Present No bands detecte <SEE NOTE> kDa 59 Lyme Disease IgM Ab WB Negative Negative Lyme Disease IgM Bands Present No bands detecte <SEE NOTE> kDa 60 Lyme Disease Interpretation See Comment 61 CBC No Diff 04/16/2013 [facility] White Blood 8.6 10^ 3/uL 4.8-10.8 [phone] Count Red Blood Count 4.71 10^6/uL 4.0-5.4 Hemoglobin 13.9 g/dL 12.0-16.0 Hematocrit 40 % 35-47 Mean Corpuscular Volume 85 fL 80-97 Mean Corpuscular Hemoglobin 30 pg 27-31 Mean Corpuscular HGB Conc 35 g/dL 31-36 Red Cell Distribution Width 13 % 10.5-15 Platelet Count 315 10^3/uL 150-450 Mean Platelet Volume 8 um3 7.4-10.4 Laboratory test 03/16/2012 [facility] [place] Test NEGATIVE Negative finding [phone] CBC 03/16/2012 [facility] WBC 6.1 x10E3/uL 4.3-10.9 [phone] RBC 4.67 x10E6/uL 4.30-5.20 Hemoglobin 13.2 g/dL 12.0-16.0 Hematocrit 40.1 % 37.0-47.0 MCV 85.9 fl 82.0-98.0 MCH 28.3 pg 28.0-33.0 MCHC 32.9 g/dL 32.0-36.0 RDW 12.4 % 11.5-14.5 Platelet Count 268 x10E3/uL 130-400 MPV 9.9 fl 6.5-10.5 Segmented Neutrophils 47.7 % 44.0-74.0 Lymphocytes 26.4 % 15.0-45.0 Monocytes 13.4 % High 2.0-13.0 Eosinophils 12.2 % High 0.0-6.0 Basophils 0.3 % 0.0-2.0 Neutrophil Absolute 2.9 x10E3/uL 1.4-7.0 Lymphocytes Absolute 1.6 x10E3/uL 1.0-3.4 Monocyte Absolute 0.8 x10E3/uL 0.2-1.0 Eosinophil Absolute 0.7 x10E3/uL High 0.0-0.5 Basophil Absolute 0.0 x10E3/uL 0.0-0.2 Laboratory test finding 03/16/2012 [facility] Strep Screen neg Neg (607)- - Urine DIP 03/07/2011 [facility] Leukocytes NEG Neg (607)- - Urine Nitrites NEG Neg Urine pH 5 5-6 Total Protein, Urine NEG Neg Urine Glucose NORM Norm Urine Ketones NEG Neg Urobilinogen NORM Norm Urine Bilirubin NEG Neg Urine Blood NEG Neg Specific [place] NA Low 1.01-1.02 Manual Differential 03/07/2011 [facility] Polysegmented 69 % 38-83 62 [phone] Neutrophil Lymphocyte 20 % Low 25-47 Monocyte 7 % 0-13 Eosinophil 4 % 0-6 Absolute Neutrophil Count 6.4 RBC Morphology NORMAL Laboratory test 03/07/2011 [facility] Ferritin 41 NG/ ML 11.0-307 finding [phone] Vitamin D, 25 03/07/2011 [facility] 25-Hydroxy <4.0 ng/mL () Hydroxy [phone] Vitamin D2 25-Hydroxy Vitamin D3 23 ng/mL () 25-Hydroxy Vitamin D Total 23 ng/mL Abnormal () 63 Laboratory test 03/07/2011 [facility] TSH 1.35 MIU/ ML 0.34-5.60 finding [phone] Thyroxine Free 0.75 ng/dL 0.61-1.24 Vitamin B12 473 pg/mL 180-914 Comp Metabolic Panel 03/07/2011 [facility] Sodium 140 mmol/L 135-145 [phone] Potassium 4.1 mmol/L 3.6-5.2 Chloride 108 mmol/L 101-111 Co2 (Carbon Dioxide) 24.0 mmol/L 22-32 Anion Gap 8.0 mmol/L 2-11 64 Glucose 101 mg/dL High 70-100 BUN 8 mg/dL 6-24 Creatinine 0.6 mg/dL 0.50-1.40 One Over Creatinine 1.66 BUN/Creatinine Ratio 13.3 8-20 Calcium 9.8 mg/dL 8.1-9.9 Total Protein 7.0 GM/DL 6.2-8.1 Albumin 4.3 GM/DL 3.6-5.4 Globulin 2.7 GM/DL 2-4 Albumin/Globulin Ratio 1.6 1-3 Bilirubin Total 0.5 mg/dL 0.4-1.5 65 Alkaline Phosphatase 120 U/L Low 130-390 Alt (SGPT) 11 U/L Low 14-54 Ast (Sgot) 21 U/L 12-42 CBC Auto Diff 03/07/2011 [facility] White Blood 9.3 CUMM 4.8-10.8 [phone] Count Red Cell Count 4.64 CUMM 4.2-5.4 Hemoglobin 13.7 g/dL 12.0-16.0 Hematocrit 40 % 35-47 Mean Corpuscular Volume 86 um3 79-97 Mean Corpuscular Hemoglob 30 pg 27-31 Mean Corpuscular HGB Cone 34 g/dL 32-36 Redcell Distribution WDTH 13 % 10.5-15 Platelet Count 344 CUMM 150-450 Mean Platelet Volume 7.8 um3 7.4-10.4 66 Laboratory test finding 03/01/2011 [facility] Strep Screen NEG Neg (607)- - Flu Test A, B, Or A & 08/11/2010 [facility] Influenza A Antigen NEG B,Binaxn (607)- - Influenza B Antigen NEG Laboratory test finding 09/03/2008 [facility] Strep Screen NEG Neg (607)- - Urine DIP 12/27/2007 In [facility] Leukocytes NEG Neg (607)- - Urine Nitrites NEG Neg Urine pH 5 5-6 Total Protein, Urine NEG Neg Urine Glucose NORM Norm Urine Ketones NEG Neg Urobilinogen NORM Norm Urine Bilirubin NEG Neg Urine Blood NEG Neg Specific [place] NORM Low 1.01-1.02 Laboratory test finding 09/01/2005 In [facility] Strep Screen neg Neg (607)- - Laboratory test finding 06/09/2005 In [facility] Strep Screen pos Neg (607)- - Laboratory test finding 05/21/2005 [facility] Rapid Strep A FINAL [phone] Laboratory test finding 03/21/2005 In [facility] Strep Screen NEG Neg (607)- - Urine DIP 12/25/2001 In [facility] Leukocytes N Neg (607)- - Urine Nitrites N Neg Urine pH 6 5-6 Total Protein, Urine N Neg Urine Glucose N Norm Urine Ketones N Neg Urobolinogen N Norm Urine Bilirubin N Neg Urine Blood N Neg 1 RESULT: 01,04:01 REFERENCE VALUE Not Applicable 2 RESULT: 04:02,05:03 DQ Serologic Equivalent: 4,5 REFERENCE VALUE Not Applicable 3 The absence of HLA celiac permissive genes would make the presence of celiac disease unlikely. ADDITIONAL INFORMATION Method: Molecular typing of HLA antigens performed using reverse SSOP and/or SSP methods, reported as serological equivalents and low to medium resolution molecular values. Performing Laboratory CLIA# [id number] Test Performed by: [address] [address] 4 REFERENCE VALUE <1:80 (Negative) 5 Test Performed by: [address] [address] 6 REFERENCE VALUE Not Applicable 7 RESULT: HLA-B27 antigen was not detected. ADDITIONAL INFORMATION Method: Flow Cytometry Performing Laboratory CLIA# [id number] Test Performed by: [address] [address] 8 REFERENCE VALUE <20.0 (Negative) Test Performed by: [facility] - [address] [address] 9 REFERENCE VALUE <4.0 (Negative) Test Performed by: [address] [address] 10 Negative serology. Celiac disease unlikely. However, approximately 10% of patients with celiac disease are seronegative. Also, patients who are already adhering to a gluten-free diet may be seronegative. If celiac disease is highly clinically suspected, consider HLA-DQ typing. Test Performed by: [facility] - [address] [address] 11 REFERENCE VALUE <30.0 (Negative) Test Performed by: [facility] - [address] [address] 12 REFERENCE VALUE <15.0 (Negative) 13 REFERENCE VALUE <15.0 (Negative) Test Performed by: [facility] - [address] [address] 14 REFERENCE VALUE <1.0 (Negative) Test Performed by: [facility] - [address] [address] 15 REFERENCE VALUE <1.0 (Negative) 16 REFERENCE VALUE <1.0 (Negative) 17 REFERENCE VALUE <1.0 (Negative) 18 REFERENCE VALUE <1.0 (Negative) 19 REFERENCE VALUE <1.0 (Negative) 20 REFERENCE VALUE <1.0 (Negative) Test Performed by: [facility] - [address] [place] [id number] 21 Normal values may vary with age, season and geographic area. Titers above upper limits may be indicative of infection, however only a two dilution rise in titer is required to be considered significant. ASO titer will usually rise above upper limits within one week of exposure, increase to peak levels at 3-5 weeks and return to baseline level at 6-12 twelve months. 22 Test Performed by: [place] [id number] Test Performed by: [facility] - [place] [id number] 24 Test Performed by: [facility] [place] [address] 25 Normal Range 180 to 914 Indeterminate Range 145 to 180 Deficient Range <145 26 Normal Range 180 to 914 Indeterminate Range 145 to 180 Deficient Range <145 27 Because ethnic data is not always readily available, this report includes an eGFR for both -Americans and non- Americans. The National Kidney Disease Education Program (NKDEP) does not endorse the use of the MDRD equation for patients that are not between the ages of 18 and 70, are , have extremes of body size, muscle mass, or nutritional status, or are non- or non-. According to the National Kidney Foundation, irrespective of diagnosis, the stage of the disease is based on the level of kidney function: Stage Description GFR(mL/min/1.73 m(2)) 1 Kidney damage with normal or decreased GFR 90 2 Kidney damage with mild decrease in GFR 60-89 3 Moderate decrease in GFR 30-59 4 Severe decrease in GFR 15-29 5 Kidney failure <15 (or dialysis) 28 [id number] 31 Therapeutic target for the treatment of diabetes mellitus patients is <7% HBA1C, and in selective patients <6.0%. Please refer to [place] [employer] diabetic care guidelines for further information. 32 [id number] 34 Because ethnic data is not always readily available, this report includes an eGFR for both -Americans and non- Americans. The National Kidney Disease Education Program (NKDEP) does not endorse the use of the MDRD equation for patients that are not between the ages of 18 and 70, are , have extremes of body size, muscle mass, or nutritional status, or are non- or non-. According to the National Kidney Foundation, irrespective of diagnosis, the stage of the disease is based on the level of kidney function: Stage Description GFR(mL/min/1.73 m(2)) 1 Kidney damage with normal or decreased GFR 90 2 Kidney damage with mild decrease in GFR 60-89 3 Moderate decrease in GFR 30-59 4 Severe decrease in GFR 15-29 5 Kidney failure <15 (or dialysis) 35 [id number] Normal Range 180 to 914 Indeterminate Range 145 to 180 Deficient Range <145 37 [id number] 38 Because ethnic data is not always readily available, this report includes an eGFR for both -Americans and non- Americans. The National Kidney Disease Education Program (NKDEP) does not endorse the use of the MDRD equation for patients that are not between the ages of 18 and 70, are , have extremes of body size, muscle mass, or nutritional status, or are non- or non-. According to the National Kidney Foundation, irrespective of diagnosis, the stage of the disease is based on the level of kidney function: Stage Description GFR(mL/min/1.73 m(2)) 1 Kidney damage with normal or decreased GFR 90 2 Kidney damage with mild decrease in GFR 60-89 3 Moderate decrease in GFR 30-59 4 Severe decrease in GFR 15-29 5 Kidney failure <15 (or dialysis) 39 [id number] 40 ADDITIONAL INFORMATION This test was developed and its performance characteristics determined by [facility] in a manner consistent with CLIA requirements. This test has not been cleared or approved by the U.S. Food and Drug Administration. Test Performed by: [facility] [place] [address] It Support Analyst: Wiliam Ruano II, M.D., Ph.D. 41 ADDITIONAL INFORMATION This test was developed and its performance characteristics determined by [facility] in a manner consistent with CLIA requirements. This test has not been cleared or approved by the U.S. Food and Drug Administration. Test Performed by: [facility] [place] [address] It Support Analyst: Wiliam Ruano II, M.D., Ph.D. 42 [id number] Normal Range 180 to 914 Indeterminate Range 145 to 180 Deficient Range <145 45 [id number] 46 Because ethnic data is not always readily available, this report includes an eGFR for both -Americans and non- Americans. The National Kidney Disease Education Program (NKDEP) does not endorse the use of the MDRD equation for patients that are not between the ages of 18 and 70, are , have extremes of body size, muscle mass, or nutritional status, or are non- or non-. According to the National Kidney Foundation, irrespective of diagnosis, the stage of the disease is based on the level of kidney function: Stage Description GFR(mL/min/1.73 m(2)) 1 Kidney damage with normal or decreased GFR 90 2 Kidney damage with mild decrease in GFR 60-89 3 Moderate decrease in GFR 30-59 4 Severe decrease in GFR 15-29 5 Kidney failure <15 (or dialysis) 47 REFERENCE VALUE < 80 (Follicular) <285 (Luteal) ADDITIONAL INFORMATION This test was developed and its performance characteristics determined by [facility] in a manner consistent with CLIA requirements. This test has not been cleared or approved by the U.S. Food and Drug Administration. Test Performed by: [facility] [place] [address] It Support Analyst: Wiliam Ruano II, M.D., Ph.D. 48 Free testosterone concentrations are calculated from total testosterone after measuring the percentage of free testosterone. Since the percentage in this patient was below the limit of quantification, the free testosterone concentration could not be calculated more precisely. ADDITIONAL INFORMATION Testing performed by [facility]. This test was developed and its performance characteristics determined by [facility] in a manner consistent with CLIA requirements. This test has not been cleared or approved by the U.S. Food and Drug Administration. 49 ADDITIONAL INFORMATION Testing performed by Liquid Chromatography-Tandem Mass Spectrometry (LC-MS/MS). This test was developed and its performance characteristics determined by [facility] in a manner consistent with CLIA requirements. This test has not been cleared or approved by the U.S. Food and Drug Administration. Test Performed by: [facility] - [place] [address] It Support Analyst: Wiliam Ruano II, M.D., Ph.D. 50 Normally menstruating females - Follicular phase 3 - 9 - Mid-cycle peak 4 - 23 - Luteal phase 1 - 6 Postmenopausal females 16 - 114 51 Normally menstruating females - Follicular Phase 1 - 18 - Mid-Cycle Peak 24 - 105 - Luteal Phase 0.6 - 20 Postmenopausal females 15 - 62 52 Test Performed by: [facility] [place] [address] It Support Analyst: Wiliam Ruano II, M.D., Ph.D. 53 SEE RESULT BELOW Name: TITA STACK : [address]: Dayna Vieira NP Acct: [id number] Unit: [id number] AGE: 20 Location: [facility] Re04/05/16 SEX: F Status: REG REF SPEC: [id number] GUILLAUME: 04/05/[address]: Dayna Vieira NP REQ: [id number] RECD: 04/05/16 STATUS: COMP _ SOURCE: VAGINAL SPDESC: ORDERED: Genital Culture COMMENTS: [id number] Procedure Result Reported Site Genital Culture Final 04/07/16- 840 ML Organism 1 NORMAL ELEANOR Quantity 2+ Routine genital cultures do not include selective agar for Neisseria gonorrhoeae. Molecular testing offers better test sensitivity and therefore is the preferred test methodology for identifying this organism. * ML - [facility] ([facility]) . END OF REPORT * ML=Testing performed at Main Lab DEPARTMENT OF PATHOLOGY, [address] [place] [address] Lyndon Ordaz M.D. Director [facility] # [id number] 54 Because ethnic data is not always readily available, this report includes an eGFR for both -Americans and non- Americans. The National Kidney Disease Education Program (NKDEP) does not endorse the use of the MDRD equation for patients that are not between the ages of 18 and 70, are , have extremes of body size, muscle mass, or nutritional status, or are non- or non-. According to the National Kidney Foundation, irrespective of diagnosis, the stage of the disease is based on the level of kidney function: Stage Description GFR(mL/min/1.73 m(2)) 1 Kidney damage with normal or decreased GFR 90 2 Kidney damage with mild decrease in GFR 60-89 3 Moderate decrease in GFR 30-59 4 Severe decrease in GFR 15-29 5 Kidney failure <15 (or dialysis) 55 Normal Range 180 to 914 Indeterminate Range 145 to 180 Deficient Range <145 56 Because ethnic data is not always readily available, this report includes an eGFR for both -Americans and non- Americans. The National Kidney Disease Education Program (NKDEP) does not endorse the use of the MDRD equation for patients that are not between the ages of 18 and 70, are , have extremes of body size, muscle mass, or nutritional status, or are non- or non-. According to the National Kidney Foundation, irrespective of diagnosis, the stage of the disease is based on the level of kidney function: Stage Description GFR(mL/min/1.73 m(2)) 1 Kidney damage with normal or decreased GFR 90 2 Kidney damage with mild decrease in GFR 60-89 3 Moderate decrease in GFR 30-59 4 Severe decrease in GFR 15-29 5 Kidney failure <15 (or dialysis) 57 Normal Range 180 to 914 Indeterminate Range 145 to 180 Deficient Range <145 58 -- REFERENCE VALUE -- 25-HYDROXY D TOTAL (D2+D3) Optimum levels in the healthy population are 20-50, patients with bone disease may benefit from higher levels within this range. Test Performed by: [address] [address] It Support Analyst: Otto Dexter III, M.D. 59 No bands detected 60 No bands detected 61 Specific serologic response to B. burgdorferi infection is not detected, but cannot rule out early infection during which low or undetectable antibody levels to B. burgdorferi may be present. If clinically indicated, a new serum specimen should be submitted in 7-14 days. CDC criteria require >=5 bands for IgG or >=2 bands for IgM for the Immunoblot to be considered positive. Bands (e.g.,p41) may be detected in patients without Lyme disease, and patterns not meeting the CDC criteria should be interpreted with caution. Immunoblot should be ordered only on specimens that are positive or equivocal by a FDA-licensed Lyme disease antibody screening test (e.g., EIA). Test Performed by: [address] [address] It Support Analyst: Otto Dexter III, M.D. 62 NON FASTING 63 Interpretation: 10-24 (mild to moderate deficiency) -- REFERENCE VALUE -- 25-HYDROXY D TOTAL (D2+D3) Optimum levels in the normal population are 25-80 Test Performed by: [facility] Dpt of Lab Med and Pathology [address] [place] [address] It Support Analyst: Otto Dexter III, M.D. 64 Anion gap measurement may be of limited value in the presence of any alkalosis, especially in a combined acid base disorder. . 65 A metabolite of Naproxen, O-desmethylnaproxen, has been shown to interfere with the [employer] method for measuring total bilirubin. Samples from patients who have taken Naproxen have shown spurious elevation in total bilirubin levels. 66 Lymphopenia % Procedures Date Code Description Status 06/12/2018 23023 Therapeutic,Prophylactic,Or Diagnostic Inj,SC/Im Specify Completed Drug 03/01/2018 03195 Therapeutic,Prophylactic,Or Diagnostic Inj,SC/Im Specify Completed Drug 01/26/2018 18198 Therapeutic,Prophylactic,Or Diagnostic Inj,SC/Im Specify Completed Drug 01/03/2018 80448 Therapeutic,Prophylactic,Or Diagnostic Inj,SC/Im Specify Completed Drug 06/22/2017 27373 Therapeutic,Prophylactic,Or Diagnostic Inj,SC/Im Specify Completed Drug 01/01/2015 86379 Therapeutic,Prophylactic,Or Diagnostic Inj,SC/Im Specify Completed Drug 12/01/2014 46177 Therapeutic,Prophylactic,Or Diagnostic Inj,SC/Im Specify Completed Drug 10/30/2014 33109 Therapeutic,Prophylactic,Or Diagnostic Inj,SC/Im Specify Completed Drug 05/11/2004 40971 Destruction, 2-14 Premalignant Lesions Completed 05/11/2004 07729 Destruction,Premalignant Lesion,1St Lesion Completed 04/28/2004 93301 Destruction, 2-14 Premalignant Lesions Completed 04/28/2004 33139 Destruction,Premalignant Lesion,1St Lesion Completed 04/08/2004 59990 Destruction, 2-14 Premalignant Lesions Completed 04/08/2004 56208 Destruction,Premalignant Lesion,1St Lesion Completed 09/24/2003 34216 Audiometric Screening Test, Pure Tone, Air Only Completed Encounters Type Date Location Provider Dx Diagnosis Office Visit 06/12/2018 Main Office Kathleen Ochoa 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 not intractable, w/o status migrainosus N91.5 Oligomenorrhea, unspecified E53.8 Deficiency of other specified B group vitamins E55.9 Vitamin D deficiency, unspecified Office Visit 02/20/2018 4:45p Main Office Dayna Amezquita J30.9 Allergic rhinitis, Storm, DISPATCH OFFICER-C unspecified B86 Scabies G43.009 Migraine w/o aura, not intractable, w/o status migrainosus Office Visit 01/03/2018 10:45a Main Office Kathleen Ochoa G43.009 Migraine w/ o aura, Blegen M.D. not intractable, w/o status migrainosus E53.8 Deficiency of other specified B group vitamins R53.83 Other fatigue Office Visit 06/22/2017 10:15a Main Office Kathleen Ochoa Z00.00 Encntr for Nilesh Chavez general adult medical exam w/o abnormal findings F41.9 Anxiety disorder, unspecified E53.8 Deficiency of other specified B group vitamins E55.9 Vitamin D deficiency, unspecified G43.009 Migraine w/o aura, not intractable, w/o status migrainosus Z23 Encounter for immunization Office Visit 12/06/2016 1:30p Main Office Kathleen Chavez M.D. R12 Heartburn M72.2 Plantar fascial fibromatosis F41.9 Anxiety disorder, unspecified N91.5 Oligomenorrhea, unspecified Office Visit 11/28/2016 3:30p Main Office Dayna Amezquita M72.2 Plantar fascial Storm, DISPATCH OFFICER-C fibromatosis Office Visit 10/28/2016 1:45p Main Office Suzanne Corbin, R10.9 Unspecified DISPATCH OFFICER-C abdominal pain Office Visit 09/27/2016 2:45p Main Office Kathleen Ochoa N91.5 Oligomenorrhea, Blegen, M.D. 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 syndrome F41.9 Anxiety disorder, unspecified N91.5 Oligomenorrhea, unspecified R10.30 Lower abdominal pain, unspecified E53.8 Deficiency of other specified B group vitamins Office Visit 04/05/2016 11:45a Main Office Dayna Vieira, N76.0 Acute vaginitis DISPATCH OFFICER-C Office Visit 03/15/2016 3:00p Main Office Scott Mohamud L30.9 Dermatitis , III, DISPATCH OFFICER-C unspecified Office Visit 03/03/2016 11:15a Main Office Kathleen Ochoa J06.9 Acute upper Blegen M.D. respiratory infection, unspecified Z23 Encounter for immunization Office Visit 02/13/2016 10:00a Main Office Suzanne Corbin, DISPATCH OFFICER-C L70.8 Other acne L21.8 Other seborrheic dermatitis Office Visit 01/27/2016 4:30p Main Office Bismark Burks L30.9 Dermatitis, MD unspecified Office Visit 05/19/2015 4:15p Main Office Kathleen Ochoa G47.00 Insomnia, Kathy, MNehaD. unspecified S06.0x0S Concussion without loss of consciousness, sequela E53.9 Vitamin B deficiency, unspecified Office Visit 11/19/2014 2:30p Main Office Kathleen Ochoa 708.9 Urticaria Unspec Pierregen MNehaDNeha Office Visit 10/22/2014 2:15p Main Office Kathleen Ochoa 850.9 Concussion Unspec Kathy MVin 780.79 Malaise And Fatigue Other 780.52 Insomnia Unspecified Office Visit 06/17/2014 4:30p Main Office Kathleen Ochoa 780.52 Insomnia Kathy MNehaDNeha Unspecified Office Visit 05/17/2014 9:45a Main Office Nichole Grimes 465.9 URI Upper Nilesh Haas Respiratory Infections Acute Unspec Sites Office Visit 05/12/2014 3:45p Main Office Dayna Amezquita 465.9 URI Upper Storm, DISPATCH OFFICER-C Respiratory Infections Acute Unspec Sites Office Visit 02/05/2014 3:15p Main Office Kathleen Ochoa 850.9 Concussion Unspec Kathy, MVin 296.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 784.0 Headache Office Visit 07/05/2013 4:30p Main Office Dayna Amezquita 296.31 Depressive Disorder Storm, DISPATCH OFFICER-C Major Recurrent Mild 465.9 URI Upper Respiratory Infections Acute Unspec Sites Office Visit 06/21/2013 4:30p Main Office Dayna Amezquita 296.31 Depressive Disorder Storm, DISPATCH OFFICER-C Major Recurrent Mild Office Visit 06/07/2013 2:00p Main Office Dayna Amezquita 296.31 Depressive Disorder Storm, DISPATCH OFFICER-C Major Recurrent Mild Office Visit 05/20/2013 11:00a Main Office Dayna Amezquita 784.0 Headache Storm, DISPATCH OFFICER-C 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 Child Health Check 268.9 Vitamin D Deficiency Unspec 780.79 Malaise And Fatigue Other 784.0 Headache V18.19 Family HX Of Other Endocrine And Metabolic Disease Office Visit 03/19/2013 4:30p Main Office Kathleen Ochoa 310.2 Postconcussion Nilesh Chavez Syndrome 784.0 Headache Office Visit 02/19/2013 4:45p Main Office Suzanne Corbin, 461.9 Sinusitis Acute DISPATCH OFFICER-C Unspec Office Visit 12/19/2012 9:00a Main Office Suzanne Corbin, 465.9 URI Upper DISPATCH OFFICER-C Respiratory Infections Acute Unspec Sites 691.8 Dermatitis Atopic & Related Conditions Other Office Visit 08/15/2012 4:45p Main Office Suzanne Corbin, 382.9 Otitis Media Unspec DISPATCH OFFICER-C Office Visit 03/16/2012 3:30p Main Office Suzanne Corbin, 462 Pharyngitis Acute DISPATCH OFFICER-C Office Visit 03/13/2012 3:15p Main Office Kathleen Ochoa V20.2 Routine Or Blegen, M.D. Child Health Check 310.2 Postconcussion Syndrome 268.9 Vitamin D Deficiency Unspec 706.1 Acne Other Office Visit 03/07/2011 11:45a Main Office Kathleen Chavez, V20.2 Routine Infant Or M.D. Child Health Check 310.2 Postconcussion Syndrome 784.0 Headache 386.10 Vertigo Peripheral Unspec Office Visit 03/01/2011 4:30p Main Office Suzanne Corbin, 310.2 Postconcussion DISPATCH OFFICER-C Syndrome Office Visit 08/25/2010 3:30p Main Office Kathleen Ochoa 784.0 Headache Nilesh Chavez 386.10 Vertigo Peripheral Unspec Office Visit 08/11/2010 12:15p Main Office Kathleen Chavez M.D. 784.0 Headache 465.9 URI Upper Respiratory Infections Acute Unspec Sites 386.10 Vertigo Peripheral Unspec Office Visit 08/05/2010 11:00a Main Office Kathleen Ochoa 784.0 Headache Nilesh Chavez Office Visit 06/02/2010 10:45a Main Office Erika Spencer, 346.80 Migraine Other W/O SCALE INSTALLER Intractable Office Visit 05/24/2010 1:45p Main Office Erika Spencer, 382.9 Otitis Media Unspec SCALE INSTALLER Office Visit 05/05/2010 4:00p Main Office Erika Spencer, 381.01 Otitis Media Serous SCALE INSTALLER Acute Office Visit 02/24/2010 2:45p Main Office Kathleen Ochoa V20.2 Routine Infant Or Blegen, M.D. Child Health Check 477.9 Rhinitis Allergic Cause Unspec 493.90 Asthma Unspec W/O Status Asthmaticus 346.80 Migraine Other W/O Intractable Office Visit 04/06/2009 1:30p Main Office Dayna Vieira, 461.9 Sinusitis Acute DISPATCH OFFICER-C Unspec 477.9 Rhinitis Allergic Cause Unspec Office Visit 03/24/2009 4:00p Main Office Kathleen Chavez, V20.2 Routine Or M.D. Child Health Check 110.5 Dermatophytosis Body 789.07 Pain Abdominal Generalized Office Visit 09/03/2008 3:30p Main Office Stacy Emanuel 46Maye Pharyngitis Acute Fazal, F.N.P.C. Office Visit 12/27/2007 12:15p Main Office Kathleen Ochoa V20.2 Routine Infant Or Blegen, M.D. Child Health Check 493.90 Asthma Unspec W/O Status Asthmaticus 995.3 Allergy Unspec 724.5 Backache Unspec V05.4 Varicella Vaccination & Inoculation V06.8 Combination Diseases Other Vaccination & Inoculation Office Visit 05/25/2007 2:30p Main Office Dayna Vieira, 382.9 Otitis Media DISPATCH OFFICER-C Unspec Office Visit 01/22/2007 1:00p Main Office Kathleen Chavez, V20.2 Routine Or M.D. Child Health Check 995.3 Allergy Unspec 493.90 Asthma Unspec W/O Status Asthmaticus Office Visit 10/19/2006 11:45a Main Office Kathleen Ochoa 461.9 Sinusitis Acute Nilesh Chavez Unspec Office Visit 01/16/2006 11:15a Main Office Kathleen Ochoa V20.2 Routine Or Ble, M.D. Child Health Check Office Visit 09/01/2005 4:15p Main Office Markel Patel M.D. 465.9 URI Upper Respiratory Infections Acute Unspec Sites Office Visit 06/09/2005 10:45a Main Office Stacy Emanuel 034.0 Streptococcal Sore Fazal, Throat F.N.P.C. Office Visit 03/21/2005 5:00p Main Office Stacy Emanuel 46Maye Pharyngitis Acute Fazal, F.N.P.C. Office Visit 01/19/2005 12:00p Main Office Kathleen Ochoa V20.2 Routine Or Blegen, M.D. Child Health Check 995.3 Allergy Unspec 078.10 Viral Warts Unspec 493.90 Asthma Unspec W/O Status Asthmaticus Office Visit 01/14/2004 11:30a Main Office Kathleen Chavez, V20.2 Routine Or M.DNeha Child Health Check 995.3 Allergy Unspec 389.9 Hearing Loss Unspec 078.10 Viral Warts Unspec Office Visit 09/24/2003 4:00p Main Office Nichole Grimes 389.9 Hearing Loss Nilesh Haas Unspec 995.3 Allergy Unspec Office Visit 06/16/2003 2:15p Main Office Stacy Emanuel 381.01 Otitis Media Serous Fazal, Acute F.N.P.C. Office Visit 05/28/2003 4:00p Main Office Nichole Grimes 381.4 Otitis Media Acute Or Nilesh Haas Chronic Nonsuppurative 462 Pharyngitis Acute Office Visit 01/13/2003 10:15a Main Office Kathleen Chavez, V20.2 Routine Infant Or M.DNeha Child Health Check 477.9 Rhinitis Allergic Cause Unspec Office Visit 01/04/2003 11:15a Main Office Nichole Grimes 373.9 Inflammation Eyelid Nilesh Haas Unspec Office Visit 11/18/2002 1:30p Main Office Nichole Grimes 382.9 Otitis Media Unspec Nilesh Haas Office Visit 08/12/2002 11:00a Main Office Kathleen Ochoa 466.0 Bronchitis Acute Nilesh Chavez Office Visit 05/17/2002 2:15p Main Office Adilene Gamez, 382.9 Otitis Media Unspec SCALE INSTALLER Office Visit 12/25/2001 11:00a Main Office Kathleen Ochoa V20.2 Routine Infant Or Nilesh Chavez Child Health Check Office Visit 10/23/2001 3:45p Main Office Nichole Grimes 382.9 Otitis Media Unspec Nilesh Haas Office Visit 08/01/2001 11:15a Main Office Suzanne Helms, 462 Pharyngitis Acute Nilesh 465.9 URI Upper Respiratory Infections Acute Unspec Sites Plan of Treatment Future Appointment(s):08/02/2018 12:15 pm - Kathleen Chavez M.D. at Main [id number]/24/2018 - Kathleen Chavez M.D.Z00.00 Encounter for general adult medical examination without abnoComments:HEALTH MAINTENANCE REMINDERS DISCUSSED. EMPHASIZED HEALTHY EATING, EXERCISE/ PHYSICAL ACTIVITY, CALCIUM INTAKE WITH DIET.Follow up:. -- RETURN FOR PAP SMEAR (30 MIN OR END OF SESSION) Recommendations:-- REMINDER TO SEE DENTIST -- REMINDER TO SEE EYE QRCJHRN57.0 Drug-induced systemic lupus erythematosusComments:SX HAVE IMPROVED AND FEELS RESOLVED, OFF MINOCYCLINE - CAUSATIVE AGENT- SINCE MARCH. HAD EVALUATION WITH DR. MARTINEZ, RHEUMATOLOGY.Recommendations:-- I'M GLAD YOU ARE DOING BETTER AND FEELING MCZGEWP56.009 Migraine without aura, not intractable, without status migraComments:MIGRAINES WERE GETTING BETTER BUT THEN WORSE LAST WEEK MISTAKENLY TOOK HER OLD BCP RX FOR PROGESTERONE-ONLY BCP FOR 5 DAYS, IS BACK ON HER LOW-DOSE COMBINATION BCP NOW AND FEELS IT IS HELPING.Follow up: .Recommendations:-- FOLLOW-UP WITH DR. OBRIEN -- CONTINUE YOUR CURRENT WQCAYGRI47.8 Deficiency of other specified B group vitaminsComments:PT WANTS TO TRY THE SUBLINGUAL VITAMIN B12 AGAIN - DISCUSSED PROPER USE, DAILY, GIVEN HER VITAMIN B12 INJECTION TODAY.Follow up:.Recommendations:-- CONTINUE YOUR VITAMIN B12 INJECTION 1000 MCG ONCE PER MONTH -- OR YOU CAN TAKE THE VITAMIN B12 SUBLINGUAL 1000 MCG ONCE PER DAYN91.5 Oligomenorrhea, unspecifiedFollow up: .Recommendations:-- CONTINUE THE CONTROL PILLE55.9 Vitamin D deficiency, unspecifiedFollow up:.Recommendations:-- CONTINUE THE VITAMIN D3 2000 IU PER DAYR12 HeartburnComments:OMEPRAZOLE WORKS WELL, WANTS TO TRY LOWER DOSE THAN 20 MG BUT CANNOT FIND THAT OTC- RX SENT- LET ME KNOW IF BREAKTHROUGH SX.Follow up: .Recommendations:-- YOU CAN TAKE THE OMEPRAZOLE 10 MG PER DAY ON EMPTY BOWKINHZ27.601 Right temporomandibular joint disorder, unspecifiedRecommendations:-- YOU HAVE SIGNS OF YOUR TMJ AT YOUR RIGHT JAW -- AVOID CHEWING GUM THAT CAUSES REPETITIVE DAMAGE AND STRAIN -- YOU MAY ALSO BE CLENCHING YOUR TEETH AT NIGHT- CHECK WITH THE DENTIST ABOUT THE TMJ WHEN YOU SEE THEM -- YOU CAN USE ICE PACK X 10-15 MINUTES NEEDED TO THE AREA
--- OUTSIDE RECORDS SUMMARY | 2018-08-17 16:36 | XMS REPORT | Continuity of Care Document ---
:1995 External Reference #:[id number] Author Name Yulissa Crocker Care Team Providers Name Role Phone Kathleen Chavez MD Primary Care Physician Unavailable Payers Date Identification Numbers Payment Provider Subscriber Effective: 2016 Policy Number: [id number] [employer] Amena Narayanan PayID: [id number] [address] [address] [place] [address] Advance Directives Description No Information Available Problems Date Description Provider Status Onset: 05/17/2018 Systemic lupus erythematosus Gary Feldman M.D. Active Onset: 12/21/2017 Refractory migraine with aura Gary Feldman M.D. Active Family History Date Family Member(s) Observation Comments General Psoriasis General Crohn's Disease Father Hypertension Father Hypercholesterolemia Mother Diabetes Type II Mother Heart Disease Siblings 2 1 brother and 1 sister , 1 sister, angelman's syndrome. Social History Type Date Description Comments Sex Unknown Marital Status Single Lives With Family Occupation unemployed Hand Dominance Right-handed Tobacco Use Start: Unknown Never Smoked Cigarettes Smoking Status Reviewed: 08/17/18 Never Smoked Cigarettes ETOH Use Rarely consumes alcohol 1 drink every couple of months Tobacco Use Start: Unknown Patient has never smoked Recreational Drug Use Denies Drug Use Exercise Type/Frequency Does not exercise Allergies, Adverse Reactions, Alerts Date Description Reaction Status Severity Comments 12/21/2017 Amoxicillin Active Rash 12/21/2017 Vitamin B Complex Active Rash 03/14/2018 Minocycline drug-induced lupus Active Severe Medications Medication Date Status Form Strength Qnty SIG Indications Ordering Provider Aimovig 08/17 Active Solution 70mg/ml 1ml 1 G43.119 Gerard Auto-Inject injection Espinal, monthly N.P. Rizatriptan Active Tablets 5mg 1 by Unknown Benzoate /0000 mouth at onset of migraine, september repeat after 2 hours max 2/day max 2 days/week Vitamin D-3 Active Tablets 2000Unit take 2 Unknown /0000 tab by mouth daily Ambien CR Active Tablets ER 6.25mg one tab Unknown / by mouth every night at bedtime prn Emoquette Active Tablets 0.15-30mg 1 by Unknown /0000 -mcg mouth every day Cyanocobalamin Active Solution 1000mcg/M 1 Unknown /0000 L millilite rs intramusc ular [id number] Tylenol With Active Tablets 300-30mg 1 tab by Unknown Codeine #3 /0000 mouth every 4-6 hours as needed for persisten t migraine Xopenex HFA Active Aerosol 45mcg/Act 2 puffs inhaled every 4-6h as needed for shortness of breath. Tretinoin Active Cream 0.025% apply to Unknown face once per day Lorazepam Active Tablets 0.5mg 1-2 Unknown /0000 tablets 2 times per day as needed Zyrtec Allergy Active Capsules 10mg take one Unknown 0000 tablet by mouth in the evening Omeprazole Active Capsules DR 20mg 1 by Unknown /0000 mouth every day Metoclopramide Active Tablets 5mg 14tab 1 tablet Gerard HCL / s as needed Teddy for N.P. migraine/ nausea up to three times per day. Lexapro Active Tablets 10mg 1 by Unknown /0000 mouth every day Naratriptan HCL 08/07 Hx Tablets 1mg 9tabs 1 tablet Gerard by mouth Teddy, - prn N.P. 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 Zolmitriptan 07/18 Hx Tablets 2.5mg 9tabs Take 1 at start of Nilesh Feldman - headache, 08/07 repeat X 1 in 2 hours, no more than 2 in 24 hours, 2 times a week Lexapro 03/13 Hx Tablets 10mg 1/2 Coe Jyoti tablets MD - by mouth 08/16 with 1 20 mg tablet for a total of 25 mg daily9(pt . is taking 15 mg/day 07/03/18) Sumatriptan 02/23 Hx Tablets 50mg 9tabs take 1 at G43.119 Christianacareliz onset of Nilesh Feldman - migraine. 05/16 repeat within 2 hours if needed. max 2 pills in a day, no more than 2 times a week Topiramate 12/21 Hx Tablets 25mg 60tab 2 tab po G43.119 s bid Nilesh Feldman - 02/22 Ranitidine HCL Hx Capsules 150mg take one Unknown /0000 capsule - by mouth 05/16 twice a day Solodyn Hx Tablets ER 80mg 1 tab Unknown /0000 24HR everyday - 03/17 Cetirizine HCL Hx Tablets 10mg 1 by Unknown /0000 mouth - every day 02/22 Juleber Hx Tablets 0.15-30mg by mouth Unknown /0000 -mcg everyday - 03/07 Lexapro Hx Tablets 20mg 1 by Unknown /0000 mouth - every day 01/02 Lexapro 00 Hx Tablets 40mg 1 by Unknown /0000 mouth - every day 03/13 Stacey Allergy Hx Tablets 180mg 1 by Unknown /0000 mouth - every day 03/07 Wellbutrin Hx Tablets 75mg 1 tab Unknown /0000 daily in - Am 05/17 Fluticasone Hx Suspension 50mcg/Act spray 2 Unknown Propionate /0000 sprays in Nasal Adena - nose Allergy Relief 03/07 daily. 24- Hour Kersey-3 Fish Hx Capsules 1000mg 3x a day Unknown Oil /0000 - 03/07 Lexapro Hx Tablets 20mg 1 by Unknown /0000 mouth - every 08/16 day, 2 of a 10 mg for a total of 25 mg daily Wellbutrin SR 00/00 Hx Tablets ER 150mg take 1 /0000 12HR tablet by - mouth 07/03 morning Immunizations Description No Information Available Vital Signs Date Vital Result Comment 08/17/2018 3:35pm Height 65 inches 5'5" Weight 215.00 lb Heart Rate 85 /min BP Systolic Sitting 140 mmHg BP Diastolic Sitting 104 mmHg Respiratory Rate 16 /min BMI (Body Mass Index) 35.8 kg/m2 07/03/2018 9:04am Height 65 inches 5'5" Weight 218.00 lb Heart Rate 105 /min BP Systolic Sitting 145 mmHg BP Diastolic Sitting 96 mmHg Respiratory Rate 14 /min Pain Level 3 BMI (Body Mass Index) 36.3 kg/m2 05/18/2018 12:16pm Height 65 inches 5'5" Weight 215.38 lb Heart Rate 79 /min BP Systolic 120 mmHg BP Diastolic 80 mmHg Pain Level 4 O2 % BldC Oximetry 98 % BMI (Body Mass Index) 35.8 kg/m2 05/17/2018 4:01pm Height 65 inches 5'5" Weight 209.00 lb Heart Rate 72 /min BP Systolic Sitting 120 mmHg BP Diastolic Sitting 78 mmHg Respiratory Rate 16 /min BMI (Body Mass Index) 34.8 kg/m2 03/14/2018 3:53pm Height 65 inches 5'5" Weight 214.00 lb w/ shoes Heart Rate 86 /min BP Systolic Sitting 139 mmHg BP Diastolic Sitting 89 mmHg BMI (Body Mass Index) 35.6 kg/m2 02/23/2018 4:03pm Height 65.5 inches 5'5.50" Weight 210.00 lb Heart Rate 84 /min BP Systolic 140 mmHg BP Diastolic 84 mmHg Respiratory Rate 16 /min BMI (Body Mass Index) 34.4 kg/m2 12/21/2017 8:36am Height 65.5 inches 5'5.50" Weight 210.00 lb Heart Rate 70 /min BP Systolic 130 mmHg BP Diastolic 84 mmHg BMI (Body Mass Index) 34.4 kg/m2 Results Test Date Facility Test Result H/L Range Note Laboratory test 06/02/2018 [facility] Ribosome P <0.2 U [address] Antibodies, [place] [address] [phone] Abril Igg AB Reflex 05/18/2018 [facility] SS-A/Ro Antibody <0.2 U [address] [place] [address] [phone] SS-B/La Antibody <0.2 U 3 Sm (Palumbo) IgG Antibody <0.2 U 4 AVIATION SAFETY INSPECTOR Antibody, IgG <0.2 U 5 Scl-70 (Scleroderma) Antibody <0.2 U 6 Shelli-1 Antibody <0.2 U 7 Nuclear AB 05/18/2018 [facility] Nuclear Ab Positive 1:320 Abnormal 8 (Cap[place]) [address] ([place]) by [address], [place] [address] IgG [phone] Capri Titer: 1:320 Capri Pattern: Homogeneous 9 Laboratory 05/18/2018 [facility] Complement C3 192 mg/dL Abnormal 75 - [address] [place] [address] [phone] Complement C4 41 mg/dL Abnormal 14 - 40 11 Anti Double Stranded Dna AB <12.3 IU/mL 12 Celiac Panel 05/18/2018 [facility] Tissue Transglutaminase <1.2 U/mL [address] [place] [address] [phone] Immunoglobulin A 170 mg/dL 61 - 356 Celiac Interpretation See Comment 14 Celiac Hla 05/18/2018 [facility] Hla-[id number] SEE BELOW [address] [place] [address] [phone] Hla-DQB1 SEE BELOW 16 Celiac Gene Pairs Present? No Celiac Gene Interpretation See Comment 17 Laboratory test 05/18/2018 [facility] Thyroperoxidase AB 0.44 IU /mL N <[address] [place] [address] [phone] Cardiolipin 05/18/2018 [facility] Phospholipid Ab IgM, < 9.4 MPL [address] [address] [phone] Phospholipid Ab IgG < 9.4 GPL 19 Laboratory test 05/18/2018 [facility] Rheumatoid Factor < 10 IU/ mL N <[address] [place] [address] [phone] Cyclic Citrullinated Pep Igg <15.6 U 20 Creatine Kinase(CK) 58 U/L N 10-223 Aldolase 6.9 U/L <7.7 21 Aso (Antistreptolysin O) Titer Negative IU/mL <200 Iu/mL 22 Ribosome P Antibodies, Igg <0.2 U 23 Hla B27 05/18/2018 [facility] Hla B27 Negative [address] [place] [address] [phone] Hla B27 Interp See Comment 25 Laboratory test 05/18/2018 [facility] Erythrocyte Sed 21 mm/Hr High 0-[address] [place] [address] [phone] C Reactive Protein 18.88 mg/L High <8.01 Laboratory test 03/14/2018 [facility] Histone 1.5 U Abnormal [address] [place] [address] [phone] CBC Auto Diff 03/14/2018 [facility] White Blood 10.3 N 3.5-[address] Count 10^3/uL 0.8 [place], [place] [id number] [phone] Red Blood Count 4.99 10^6/uL N 4.00-5.40 Hemoglobin 13.9 g/dL N 12.0-16.0 Hematocrit 41 % N 35-47 Mean Corpuscular Volume 82 fL N 80-97 Mean Corpuscular Hemoglobin 28 pg N 27-31 Mean Corpuscular HGB Conc 34 g/dL N 31-36 Red Cell Distribution Width 13 % N 10.5-15 Platelet Count 398 10^3/uL N 150-450 Mean Platelet Volume 6.8 um3 Low 7.4-10.4 Abs Neutrophils 5.1 10^3/uL N 1.5-7.7 Abs Lymphocytes 3.0 10^3/uL N 1.0-4.8 Abs Monocytes 0.6 10^3/uL N 0-0.8 Abs Eosinophils 1.4 10^3/uL High 0-0.6 Abs Basophils 0.1 10^3/uL N 0-0.2 Abs Nucleated RBC 0 10^3/uL Granulocyte % 49.4 % N 38-83 Lymphocyte % 29.6 % N 25-47 Monocyte % 6.3 % N 0-7 Eosinophil % 13.9 % High 0-6 Basophil % 0.8 % N 0-2 Nucleated Red Blood Cells % 0.3 Laboratory 03/14/2018 [facility] Anti 2.2 U Abnormal 27 test finding [address] [place] [address] Antibody [phone] Anca AB Ser If 03/14/2018 [facility] C-Anca Negative Negative [address] [place], [place] [address] [phone] P-Anca Negative Negative 28 1 REFERENCE VALUE <1.0 (Negative) Test Performed by: [facility] [place] [employer] [address] [place] [address] 2 REFERENCE VALUE <1.0 (Negative) 3 REFERENCE VALUE <1.0 (Negative) 4 REFERENCE VALUE <1.0 (Negative) 5 REFERENCE VALUE <1.0 (Negative) 6 REFERENCE VALUE <1.0 (Negative) 7 REFERENCE VALUE <1.0 (Negative) Test Performed by: [facility] [employer] [employer] [address] [place] [address] 8 REFERENCE VALUE <1:80 (Negative) 9 Test Performed by: [facility] [address] [place] [address] 10 Test Performed by: [facility] - [address] [address] 11 Test Performed by: [facility] - [address] [address] 12 REFERENCE VALUE <30.0 (Negative) Test Performed by: [facility] - [address] [place] [address] 13 REFERENCE VALUE <4.0 (Negative) Test Performed by: [address] [address] 14 Negative serology. Celiac disease unlikely. However, approximately 10% of patients with celiac disease are seronegative. Also, patients who are already adhering to a gluten-free diet may be seronegative. If celiac disease is highly clinically suspected, consider HLA-DQ typing. Test Performed by: [facility] - [address] [address] 15 RESULT: 01,04:01 REFERENCE VALUE Not Applicable 16 RESULT: 04:02,05:03 DQ Serologic Equivalent: 4,5 REFERENCE VALUE Not Applicable 17 The absence of HLA celiac permissive genes would make the presence of celiac disease unlikely. ADDITIONAL INFORMATION Method: Molecular typing of HLA antigens performed using reverse SSOP and/or SSP methods, reported as serological equivalents and low to medium resolution molecular values. Performing Laboratory CLIA# [id number] Test Performed by: [facility] - [address] [address] 18 REFERENCE VALUE <15.0 (Negative) 19 REFERENCE VALUE <15.0 (Negative) Test Performed by: [facility] - [address] [address] 20 REFERENCE VALUE <20.0 (Negative) Test Performed by: [facility] - [employer] [address] [place] [address] 21 Test Performed by: [facility] - [address] [address] 22 Normal values may vary with age, season and geographic area. Titers above upper limits may be indicative of infection, however only a two dilution rise in titer is required to be considered significant. ASO titer will usually rise above upper limits within one week of exposure, increase to peak levels at 3-5 weeks and return to baseline level at 6-12 twelve months. 23 REFERENCE VALUE <1.0 (Negative) Test Performed by: [facility] [employer] [place] [address] 24 REFERENCE VALUE Not Applicable 25 RESULT: HLA-B27 antigen was not detected. ADDITIONAL INFORMATION Method: Flow Cytometry Performing Laboratory CLIA# [id number] Test Performed by: [place] [address] 26 Interpretation: Borderline (1.0-1.5) REFERENCE VALUE <1.0 (Negative) Test Performed by: [place] [address] 27 Interpretation: Weak Positive (1.1-2.9) REFERENCE VALUE <=1.0 (Negative) Test Performed by: [place] [id number] 28 Negative for cANCA and pANCA patterns by immunofluorescence. ADDITIONAL INFORMATION This test was developed and its performance characteristics determined by [facility] in a manner consistent with CLIA requirements. This test has not been cleared or approved by the U.S. Food and Drug Administration. Test Performed by: [address] [address] Procedures Date Code Description Status 01/22/2018 89079 EEG Recording Awake & Drowsy Completed Encounters Type Date Location Provider Dx Diagnosis Office Visit 07/03/2018 Rheumatology Nikolai Melgar, M32.0 Drug-induced 9:00a [facility] Specialist M.DNeha systemic lupus erythematosus Office Visit 05/18/2018 Rheumatology Nikolai Melgar R76.0 Raised antibody 12:00p [facility] [employer] [facility]ist M.DNeha titer M32.0 Drug-induced systemic lupus erythematosus L30.9 Dermatitis, unspecified M79.10 Myalgia, unspecified site R20.8 Other disturbances of skin sensation Office Visit 05/17/2018 [place] G43.119 Migraine with 4:00p Neurologic Nilesh Feldman aura, [facility] intractable, without status migrainosus M32.0 Drug-induced systemic lupus erythematosus Office Visit 03/14/2018 [place] Diabetes and Coe Coch, N91.4 Secondary 4:00p Endocrinology of oligomenorrhea Nakul D72.1 Eosinophilia G43.119 Migraine with aura, intractable, without status migrainosus K21.9 Gastro-esophageal reflux disease without esophagitis L70.0 Acne vulgaris E88.81 Metabolic syndrome F39 Unspecified mood [affective] disorder Office Visit 02/23/2018 [place] G43.119 Migraine with 4:00p Sean Feldman M.D. aura, [facility] intractable, without status migrainosus Office Visit 12/21/2017 [place] G43.119 Migraine with 8:30a Sean Feldman M.D. aura, [facility] intractable, without status migrainosus Office Visit 03/02/2012 [place] More[place] Edge 339.20 Post-Traumatic 4:00p Neurologic Nilesh Galvan Headache, [facility] Unspecified 310.2 Postconcussion Syndrome Plan of Treatment Future Appointment(s):11/19/2018 2:00 pm - Gerard Espinal, N.P. at [place] [facility]08/17/2018 - Gerard Espinal N.DonG43.119 Migraine with aura, intractable, without status migrainosusNew Medication:Aimovig 70 mg/ ml - 1 injection monthlyFollow up:3 months ok with meR20.8 Other disturbances of skin sensation
[2018-08-17 16:37] VITALS: BP 150/95
--- NOTE | 2018-08-17 16:41 | UC ---
Headache HPI - HPI Summary HPI Summary: Patient presents to urgent care with her mother. Patient a 22-year-old female with an extensive history of migraines. Patient states she gets the diarrhea daily migraine. Patient states this migraine started 1:00. Patient took her triptan. Patient hasn't had an appointment with neurology. Patient states she took a trip can because she had an or no actual pain. Patient states at the neurology office today exam and her eyes with the leg because her however headache. Patient reports nausea. Patient states this is her typical progression of headache for her. Patient has had to come to the hospital in the past where he is she received IV fluid, Toradol, and Reglan. Patient is a ring given steroids. Patient is on control pills she gets her period every 3 months unless. Was last month. Patient denies fevers, chills, rash. No head trauma. No chest pain or shortness of breath. Patient states she is not . Patient's medications reviewed this visit. - History Of Current Complaint Chief Complaint: UCHeadache Stated Complaint: HEADACHE Time Seen by Provider: 08/17/18 16:39 Hx Obtained From: Patient, Medical Records, Other: - Wei Espinal, [employer] - neurology Hx Last Menstrual Period: 06/2018 Pain Intensity: 8 - Allergies/Home Medications Allergies/Adverse Reactions: Allergies Allergy/AdvReac Type Severity Reaction Status Date / Time amoxicillin Allergy Rash Verified 08/17/18 16:37 minocycline Allergy See Comment Verified 08/17/18 16:37 Home Medications: Home Medications Atriptan 1 dose PO ONCE PRN 08/17/18 [History Confirmed 08/17/18] Zolpidem Tartrate [Ambien] 1 tab PO DAILY 08/17/18 [History Confirmed 08/17/18] PMH/Surg Hx/FS Hx/Imm Hx Previously Healthy: Yes - Surgical History Surgical History: Yes Surgery Procedure, Year, and Place: ORAL SURGERY - Family History Known Family History: Negative: Diabetes, Blood Disorder - Social History Occupation: Unemployed Lives: With Family Alcohol Use: None Substance Use Type: Prescribed Smoking Status (MU): Never Smoked Tobacco Review of Systems All Other Systems Reviewed And Are Negative: Yes Constitutional: Positive: Negative Gastrointestinal: Positive: Nausea Neurological: Positive: Headache Is Patient Immunocompromised?: No - h/o medication induced SLE Physical Exam - Summary Physical Exam Summary: Vital Signs Reviewed: Yes A+Ox3, light off Eyes: Conjunctiva Clear, EOM intact and full ENT: Hearing grossly normal TM x 2 clear, mmoist, uvula midline, no exudate, no erythema Neck: Positive: Supple Respiratory: Positive: No respiratory distress, No accessory muscle use + CTA throughout no w/r Cardiovascular: RRR nl s1, s2 no m/r CBT <2 sec abd soft + BS nt/nd no guarding, no distension Musculoskeletal Exam: WILLARD x 4 without difficulty Strength Intact, ROM Intact Neurological: Positive: Alert, + sensation throughout Psychological: Positive: Normal Response To Family Skin: Positive: no rash, no ecchymosis Triage Information Reviewed: Yes Vital Signs: Initial Vital Signs Temp 97.5 F 08/17/18 16:34 Pulse 78 08/17/18 16:34 Resp 18 08/17/18 16:34 BP 150/95 08/17/18 16:34 Pulse Ox 99 08/17/18 16:34 Re-Evaluation - Re-Evaluation First Eval Re-Evaluation Time: 17:43 Change: Improved - Pt states price and nausea resolved feels better requesting d/ c IV tolerating po 1/2 bottle water will d/C home medrol dose pack Headache Course/Dx - Course Course Of Treatment: Patient with a history of daily migraines. Patient took her triptan this morning at approximately 1:00 for an aura. Patient states she doesn't which neurology where an I exam with likely caused her headache to be worse. Patient with nausea now. Patient states this is similar to her daily migraines. No fevers or chills. No change in her symptomology. Patient has not taken anything else for pain today. Patient will be given IV fluid, Toradol, antibiotic. Will also start patient on prednisone. Will use IV Solu-Medrol here. Likely discharged with a Medrol Dosepak. I did discuss this with Dr. Espinal, nurse practitioner who follows her to neurology in agreement with plan. Patient aware that he should not feel better after this will have to the emergency department. Mother present. Agreement with plan. Will continue to monitor. Pt with elevated BP - pain - related to condition - recommmend PCP f/u - Differential Dx/Diagnosis Provider Diagnosis: Migraine Discharge - Sign-Out/Discharge Documenting (check all that apply): Patient Departure All imaging exams completed and their final reports reviewed: No Studies - Discharge Plan Condition: Stable Disposition: HOME Patient Education Materials: Migraine Headache (ED) Referrals: Kathleen Chavez MD [Primary Care Provider] - Blade Feldman MD [Medical Doctor] - Additional Instructions: - stay well hydrated. drink plenty of non0-alcoholic, non-caffinated beverages - Okay to alternate ibuprofen (Advil, Motrin) 600mg and Tylenol every 3 hours for pain or fever - Take your medicaitons as prescribed by your neurologist - rest in a dark, quiet room - avoid screen exposure (cell phone, TV, ipad, computer, etc) - Take prednisone as prescribed - contact your neurologist for follow-up - go to the emergency department or contact your neurologist for questions or concerns - Billing Disposition and Condition Condition: STABLE Disposition: Home
[2018-08-17] MEDS ORDERED: methylPREDNISolone 125 MG* 2 ML VIAL IV ONE (16:53)
[2018-08-17] MEDS ORDERED: Metoclopramide IV* 5 MG/ML 2 ML VIAL IV SLOW PU ONE (16:53)
[2018-08-17] MEDS ORDERED: NS 0.9% 1000 ML** 1,000 ML IV ONE (16:53)
[2018-08-17] MEDS ORDERED: Ketorolac INJ* 30 MG/ML 1 ML VIAL IV PUSH ONE (16:54)
[2018-08-17] MEDS ORDERED: diPHENhydraMINE PO* 25 MG PO ONE (17:51)
== END 2018-08-17 18:10 | disposition home or self-care (01) ==
LOC: UCEAST 16:30
DX: G43.909 Migraine, unspecified, not intractable, without status migrainosus (principal); Z88.0 Allergy status to penicillin; Z88.1 Allergy status to other antibiotic agents
CPT/HCPCS: 96374; 96376; 99212; A9270-GY; G0463; J1885; J2765; J2930